=== PATIENT | female | born 1940 | race Caucasian/White ===

== ENCOUNTER → 2017-11-15 | Outpatient (CLI) | payer MEDICARE, BC ==
--- NOTE | 2017-11-15 16:22 | XR ---
Lumbar spine HISTORY: Trauma, low back pain 3 views of the lumbar spine Bone mineralization is reduced. Minimal anterolisthesis grade 1 L4-5. Bone mineralization is reduced. Multilevel spondylosis is present with associated loss of disc height at the intervertebral levels a nd vacuum phenomenon. Sclerosis present in the posterior elements. Mild dextroscoliosis centered at L 3. IMPRESSION: No acute fracture or subluxation. Degenerative disc disease and facet arthropathy, spinal curvature and osteopenia. Consider MRI as indicated.
== END ==
LOC: RADXRYALE 15:20
PROVIDERS: ATTEND Internal Medicine
DX: M51.36 Other intervertebral disc degeneration, lumbar region (principal); M46.96 Unspecified inflammatory spondylopathy, lumbar region; W10.8XXA Fall (on) (from) other stairs and steps, initial encounter
CPT/HCPCS: 72100

== ENCOUNTER 2018-07-16 18:29 | Inpatient (IN) | payer MEDICARE, BC ==
[2018-07-16] MEDS ORDERED: ACETAMINOPHEN TAB 500 MG TAB PO STA (19:01)
[2018-07-16] MEDS ORDERED: KETOROLAC 30 MG/ML 1 ML VIAL IVP STA (19:04)
--- NOTE | 2018-07-16 19:09 | ED ---
Extremity Problem HPI <Gianni Emery - Last Filed: 07/16/18 19:39> - General Source: patient Mode of arrival: wheelchair Limitations: no limitations <Angie Shaw - Last Filed: 07/16/18 21:06> - General Chief complaint: Extremity Problem,Nontraumatic Stated complaint: RT FOOT PAIN Time Seen by Provider: 07/16/18 18:49 - History of Present Illness Initial comments: 78-year-old female patient presents to the emergency department today for evaluation of right ankle pain, swelling, and redness. Patient states that this started this morning and has progressively worsened throughout the day. States that she has now unable to bear weight due to the pain. States that she has felt chilled. She denies any injury to the ankle. States that she did have a fall a few months ago causing an abrasion to the ankle but that seemed to heal well. She denies any nasal congestion, cough, sore throat, nausea, vomiting, abdominal pain, hematuria, dysuria, urinary frequency, urinary urgency. Patient denies any recent rash, shortness breath, chest pain, diarrhea , constipation, back pain, numbness, tingling, dizziness, weakness, headache, visual changes, or any other complaints. (Angie Shaw) - Related Data Home Medications Medication Instructions Recorded Confirmed ALPRAZolam [Xanax] 0.5 mg PO BID 07/16/18 07/16/18 Glimepiride [Amaryl] 1 mg PO BID 07/16/18 07/16/18 Lisinopril [Zestril] 10 mg PO DAILY 07/16/18 07/16/18 Sertraline HCl [Zoloft] 50 mg PO DAILY 07/16/18 07/16/18 fentaNYL 25MCG/HR PATCH [Duragesic 1 patch TRANSDERM Q72H 07/16/18 07/16/18 25MCG/HR] oxyCODONE HCL 10 mg PO Q6H PRN 07/16/18 07/16/18 Allergies Allergy/AdvReac Type Severity Reaction Status Date / Time Penicillins Allergy Swelling Verified 07/16/18 18:58 Review of Systems ROS Other: All systems not noted in ROS Statement are negative. <Gianni Emery - Last Filed: 07/16/18 19:39> ROS Other: All systems not noted in ROS Statement are negative. <Angie Shaw M - Last Filed: 07/16/18 21:06> ROS Statement: Those systems with pertinent positive or pertinent negative responses have been documented in the HPI. Past Medical History Past Medical History: Coronary Artery Disease (CAD), Diabetes Mellitus, Hyperlipidemia, Hypertension Additional Past Medical History / Comment(s): spinal stenosis History of Any Multi-Drug Resistant Organisms: None Reported Past Surgical History: Back Surgery, Hysterectomy, Orthopedic Surgery Additional Past Surgical History / Comment(s): bilateral knee replacements Past Psychological History: Depression Smoking Status: Former smoker Past Alcohol Use History: None Reported Past Drug Use History: None Reported <Angie Shaw Jairon - Last Filed: 07/16/18 21:06> General Exam Limitations: no limitations General appearance: alert, in no apparent distress, other (This is a well- developed, well-nourished elderly female patient in no acute distress. Vital signs upon presentation are temperature 101.6F oral, pulse 87, respirations 18 , blood pressure 122/67, pulse ox 96% on room air.) Eye exam: Present: normal appearance, PERRL, EOMI. Absent: scleral icterus, conjunctival injection, periorbital swelling ENT exam: Present: normal exam, normal oropharynx, mucous membranes moist Respiratory exam: Present: normal lung sounds bilaterally. Absent: respiratory distress, wheezes, rales, rhonchi, stridor Cardiovascular Exam: Present: regular rate, normal rhythm, normal heart sounds. Absent: systolic murmur, diastolic murmur, rubs, gallop, clicks GI/Abdominal exam: Present: soft, normal bowel sounds. Absent: distended, tenderness, guarding, rebound, rigid Extremities exam: Present: full ROM, normal capillary refill, other (Patient has erythema and swelling surrounding the right ankle. Pedal pulses 2+ and equal bilaterally. Patient has tenderness over the dorsal foot and toes as well. Skin is otherwise pink, warm, dry.). Absent: normal inspection, tenderness, pedal edema, joint swelling, calf tenderness Neurological exam: Present: alert, oriented X3, CN II-XII intact Psychiatric exam: Present: normal affect, normal mood Skin exam: Present: warm, dry, intact, normal color. Absent: rash <Angie Shaw Jairon - Last Filed: 07/16/18 21:06> Vital Signs 07/16/18 07/16/18 18:41 18:58 Temperature 99.6 F 101.6 F H Pulse Rate 87 Respiratory 18 Rate Blood Pressure 122/67 O2 Sat by Pulse 96 Oximetry Medical Decision Making <Gianni Emery - Last Filed: 07/16/18 19:39> - Lab Data Result diagrams: 07/16/18 19:25 07/16/18 19:25 - Radiology Data Radiology results: report reviewed, image reviewed <Angie Shaw - Last Filed: 07/16/18 21:06> - Medical Decision Making Patient reevaluated by myself, Dr. Emery. I did review and agree with PA findings. Case was discussed in detail with Dr. Souza, covering for Dr. Mena , will admit. IV antibiotics will be started. Consults will be placed for ID and orthopedics. (Gianni Emery) 78-year-old female patient presented to the emergency department today for evaluation of right ankle pain, redness, swelling. Physical examination did reveal edema surrounding the right ankle with overlying cellulitis. The patient did have some joint tenderness as well. She is febrile 101.6F. Labs reviewed and are relatively unremarkable. Lactic acid normal. White blood cell count is normal. X-ray of the right ankle is negative for any acute osseous abnormality or effusion but does show evidence of soft tissue swelling. Did discuss findings and results with the patient and family. There is obvious cellulitis but given amount of pain there is also concern for septic arthritis. We will admit for IV antibiotics and consultation with orthopedics and infectious disease. Patient is agreeable with this plan. (Angie Shaw) - Lab Data Lab Results 07/16/18 07/16/18 07/16/18 Range/Units 19:25 19:25 19:25 WBC 7.9 (3.8-10.6) k/uL RBC 3.45 L (3.80-5.40) m/uL Hgb 10.8 L (11.4-16.0) gm/dL Hct 32.6 L (34.0-46.0) % MCV 94.7 (80.0-100.0) fL MCH 31.2 (25.0-35.0) pg MCHC 33.0 (31.0-37.0) g/dL RDW 12.8 (11.5-15.5) % Plt Count 183 (150-450) k/uL Neutrophils % 72 % Lymphocytes % 19 % Monocytes % 6 % Eosinophils % 1 % Basophils % 0 % Neutrophils # 5.7 (1.3-7.7) k/uL Lymphocytes # 1.5 (1.0-4.8) k/uL Monocytes # 0.4 (0-1.0) k/uL Eosinophils # 0.1 (0-0.7) k/uL Basophils # 0.0 (0-0.2) k/uL Sodium 138 (137-145) mmol/L Potassium 4.6 (3.5-5.1) mmol/L Chloride 100 (98-107) mmol/L Carbon Dioxide 29 (22-30) mmol/L Anion Gap 9 mmol/L BUN 22 H (7-17) mg/dL Creatinine 1.27 H (0.52-1.04) mg/dL Est GFR (CKD-EPI)AfAm 47 (>60 ml/min/1.73 sqM) Est GFR (CKD-EPI)NonAf 40 (>60 ml/min/1.73 sqM) Glucose 144 H (74-99) mg/dL Plasma Lactic Acid [place] 1.0 (0.7-2.0) mmol/L Calcium 9.3 (8.4-10.2) mg/dL Total Bilirubin 0.8 (0.2-1.3) mg/dL AST 23 (14-36) U/L ALT 21 (9-52) U/L Alkaline Phosphatase 58 (38-126) U/L Total Protein 7.7 (6.3-8.2) g/dL Albumin 4.2 (3.5-5.0) g/dL Urine Color Urine Appearance (Clear) Urine pH (5.0-8.0) Ur Specific [place] (1.001-1.035) Urine Protein (Negative) Urine Glucose (UA) (Negative) Urine Ketones (Negative) Urine Blood (Negative) Urine Nitrite (Negative) Urine Bilirubin (Negative) Urine Urobilinogen (<2.0) mg/dL Ur Leukocyte Esterase (Negative) Urine WBC (0-5) /hpf Ur Squamous Epith Cells (0-4) /hpf Urine Bacteria (None) /hpf Urine Mucus (None) /hpf 07/16/18 Range/Units 20:20 WBC (3.8-10.6) k/uL RBC (3.80-5.40) m/uL Hgb (11.4-16.0) gm/dL Hct (34.0-46.0) % MCV (80.0-100.0) fL MCH (25.0-35.0) pg MCHC (31.0-37.0) g/dL RDW (11.5-15.5) % Plt Count (150-450) k/uL Neutrophils % % Lymphocytes % % Monocytes % % Eosinophils % % Basophils % % Neutrophils # (1.3-7.7) k/uL Lymphocytes # (1.0-4.8) k/uL Monocytes # (0-1.0) k/uL Eosinophils # (0-0.7) k/uL Basophils # (0-0.2) k/uL Sodium (137-145) mmol/L Potassium (3.5-5.1) mmol/L Chloride (98-107) mmol/L Carbon Dioxide (22-30) mmol/L Anion Gap mmol/L BUN (7-17) mg/dL Creatinine (0.52-1.04) mg/dL Est GFR (CKD-EPI)AfAm (>60 ml/min/1.73 sqM) Est GFR (CKD-EPI)NonAf (>60 ml/min/1.73 sqM) Glucose (74-99) mg/dL Plasma Lactic Acid [place] (0.7-2.0) mmol/L Calcium (8.4-10.2) mg/dL Total Bilirubin (0.2-1.3) mg/dL AST (14-36) U/L ALT (9-52) U/L Alkaline Phosphatase (38-126) U/L Total Protein (6.3-8.2) g/dL Albumin (3.5-5.0) g/dL Urine Color Yellow Urine Appearance Clear (Clear) Urine pH 6.0 (5.0-8.0) Ur Specific [place] 1.013 (1.001-1.035) Urine Protein Negative (Negative) Urine Glucose (UA) Negative (Negative) Urine Ketones Negative (Negative) Urine Blood Negative (Negative) Urine Nitrite Negative (Negative) Urine Bilirubin Negative (Negative) Urine Urobilinogen <2.0 (<2.0) mg/dL Ur Leukocyte Esterase Small H (Negative) Urine WBC 9 H (0-5) /hpf Ur Squamous Epith Cells 3 (0-4) /hpf Urine Bacteria Rare H (None) /hpf Urine Mucus Rare H (None) /hpf - Radiology Data 3 views of the right ankle are obtained. Report was reviewed in its entirety. Impression by Dr. Sparrow shows soft tissue swelling inferior to the medial ankle. Plantar calcaneal heel spur. (Angie Shaw) Disposition <Gianni Emery - Last Filed: 07/16/18 19:39> Decision to Admit Reason: Admit from EC Decision Date: 07/16/18 Decision Time: 21:00 <Angie Shaw - Last Filed: 07/16/18 21:06> Clinical Impression: Cellulitis of right ankle Disposition: ADMITTED IP TO THIS [facility] Condition: Serious Referrals: Julia Mena MD [Primary Care Provider] - 1-2 days
[2018-07-16] MEDS ORDERED: VANCOMYCIN IV PER PHARMACY 1 EACH MISC MISCELLANE PRN (19:21)
[2018-07-16 19:52] LABS: Basophils % (A) 0 %; Eosinophils # (A) 0.1 k/uL (0-0.7); Eosinophils % (A) 1 %; HCT 32.6 % (34.0-46.0); HGB 10.8 gm/dL (11.4-16.0); Lymphocytes # (A) 1.5 k/uL (1.0-4.8); Lymphocytes % (A) 19 %; MCH 31.2 pg (25.0-35.0); MCV 94.7 fL (80.0-100.0); Mean Platelet Volume 7.1; Monocytes # (A) 0.4 k/uL (0-1.0); Monocytes % (A) 6 %; Neutrophils # (A) 5.7 k/uL (1.3-7.7); Neutrophils % (A) 72 %; Platelet Count 183 k/uL (150-450); RBC 3.45 m/uL (3.80-5.40); RDW 12.8 % (11.5-15.5); WBC 7.9 k/uL (3.8-10.6)
[2018-07-16 20:01] LABS: Albumin 4.2 g/dL (3.5-5.0); Calcium 9.3 mg/dL (8.4-10.2); Potassium 4.6 mmol/L (3.5-5.1); Total Bilirubin 0.8 mg/dL (0.2-1.3); Total Protein 7.7 g/dL (6.3-8.2)
[2018-07-16] MEDS: SODIUM CHLORIDE 0.9% 500 ML 500 ML IV SCH ×2 (20:06→21:17)
--- NOTE | 2018-07-16 20:19 | XR ---
EXAMINATION TYPE: XR ankle complete RT DATE OF EXAM: 07/16/2018 COMPARISON: None HISTORY: Pain TECHNIQUE: Three-view right ankle FINDINGS: Plantar calcaneal heel spur is present. Vascular calcification is present. No displaced fra ctures are evident. There is some mild soft tissue swelling over the inferior medial malleolus IMPRESSION: 1. Soft tissue swelling inferior medial ankle 2. Plantar calcaneal heel spur
[2018-07-16] MEDS ORDERED: VANCOMYCIN 1,000 MG in SODIUM CHLORIDE 0.9% 250 ML IVPB STA (20:26)
[2018-07-16 20:44] LABS: Appearance,Urine Clear (Clear); Bacteria,Urine Rare /hpf; Bilirubin,Urine Negative (Negative); Blood,Urine Negative (Negative); Color,Urine Yellow; Glucose,Urine (UA) Negative (Negative); Ketones,Urine Negative (Negative); Leukocyte Esterase,Urine Small (Negative); Mucus,Urine Rare /hpf; Nitrite,Urine Negative (Negative); Protein,Urine Negative (Negative); Specific Gravity,Urine 1.013 (1.001-1.035); Squamous Epithelial Cell,Urine 3 /hpf (0-4); Urobilinogen,Urine <2.0 mg/dL (<2.0); WBC,Urine 9 /hpf (0-5)
[2018-07-16] MEDS ORDERED: ACETAMINOPHEN TAB 325 MG TAB PO PRN (21:01)
[2018-07-16] MEDS ORDERED: NALOXONE 0.4 MG/ML 1 ML VIAL IV PRN (21:01)
[2018-07-16] MEDS ORDERED: HYDROmorphone 0.5 MG/0.5 ML SYRINGE IVP PRN (21:01)
[2018-07-16] MEDS: SODIUM CHLORIDE 0.9% 1,000 ML IV SCH (21:18)
[2018-07-16 22:24] VITALS: BMI 24.1
[2018-07-17 06:05] LABS: Glucose,Whole Blood 111 mg/dL (75-99)
[2018-07-17] MEDS: SERTRALINE 50 MG TAB PO SCH (08:01)
[2018-07-17] MEDS: ALPRAZolam 0.5 MG TAB PO SCH ×3 (08:01→20:03)
[2018-07-17] MEDS: GLIMEPIRIDE 1 MG TAB PO SCH ×2 (08:02→17:42)
[2018-07-17] MEDS ORDERED: LISINOPRIL 10 MG TAB PO SCH (09:00)
[2018-07-17 09:29] LABS: Basophils % (A) 0 %; Eosinophils # (A) 0.1 k/uL (0-0.7); Eosinophils % (A) 2 %; HCT 30.2 % (34.0-46.0); HGB 9.9 gm/dL (11.4-16.0); Lymphocytes # (A) 0.7 k/uL (1.0-4.8); Lymphocytes % (A) 14 %; MCH 31.6 pg (25.0-35.0); MCHC 32.9 g/dL (31.0-37.0); MCV 96.2 fL (80.0-100.0); Mean Platelet Volume 7.5; Monocytes # (A) 0.3 k/uL (0-1.0); Monocytes % (A) 6 %; Neutrophils # (A) 4.2 k/uL (1.3-7.7); Neutrophils % (A) 78 %; Platelet Count 145 k/uL (150-450); RBC 3.14 m/uL (3.80-5.40); RDW 12.8 % (11.5-15.5); WBC 5.4 k/uL (3.8-10.6)
[2018-07-17 12:13] LABS: Glucose,Whole Blood 129 mg/dL (75-99)
[2018-07-17] MEDS ORDERED: VANCOMYCIN 1,000 MG in SODIUM CHLORIDE 0.9% 250 ML IVPB ONE (12:30)
--- NOTE | 2018-07-17 13:30 | P.CNOR ---
History of Present Illness - [facility] Consult date: 07/17/18 Consult reason: other (Cellulitis right ankle/foot.) History of present illness: This is a 78-year-old female who is admitted to the emergency department on 03/2019 with redness and swelling to the right foot and ankle. She has no known recent injury. She states that she did have a large abrasion to the ankle several months ago which healed fine. She states that at home she began noticing significant swelling and redness as well as pain to the foot and ankle. She was having difficulty bearing weight secondary to the pain. She is admitted to the hospital for IV antibiotics. We're consulted for thecal evaluation. Since her admission her symptoms have improved by about 80% according to the patient. Past Medical History Past Medical History: Coronary Artery Disease (CAD), Diabetes Mellitus, Hyperlipidemia, Hypertension Additional Past Medical History / Comment(s): spinal stenosis History of Any Multi-Drug Resistant Organisms: None Reported Past Surgical History: Back Surgery, Hysterectomy, Orthopedic Surgery Additional Past Surgical History / Comment(s): bilateral knee replacements Past Psychological History: Depression Smoking Status: Never smoker Past Alcohol Use History: None Reported Past Drug Use History: None Reported Medications and Allergies Home Medications Medication Instructions Recorded Confirmed Type ALPRAZolam [Xanax] 0.5 mg PO BID 07/16/18 07/16/18 History Glimepiride [Amaryl] 1 mg PO BID 07/16/18 07/16/18 History Lisinopril [Zestril] 10 mg PO DAILY 07/16/18 07/16/18 History Sertraline HCl [Zoloft] 50 mg PO DAILY 07/16/18 07/16/18 History fentaNYL 25MCG/HR PATCH [Duragesic 1 patch TRANSDERM Q72H 07/16/18 07/16/18 History 25MCG/HR] oxyCODONE HCL 10 mg PO Q6H PRN 07/16/18 07/16/18 History Allergies Allergy/AdvReac Type Severity Reaction Status Date / Time Penicillins Allergy Swelling Verified 07/16/18 18:58 Physical Examination This is a pleasant 78-year-old female in no acute distress. She is alert and oriented 3. Exam of the right lower extremity reveals minimal erythema. There is minimal soft tissue swelling about the ankle. She is able to fully dorsiflex and plantarflex at the ankle without difficulty or pain. She has normal toe motion. Neurovascular status to the right lower extremity is intact. Results X-rays of the right ankle reveal no bony abnormality. No acute fracture identified. - Labs Labs: Abnormal Lab Results - Last 24 Hours (Table) 07/16/18 07/16/18 07/16/18 Range/Units 19:25 19:25 20:20 RBC 3.45 L (3.80-5.40) m/uL Hgb 10.8 L (11.4-16.0) gm/dL Hct 32.6 L (34.0-46.0) % Plt Count (150-450) k/uL Lymphocytes # (1.0-4.8) k/uL BUN 22 H (7-17) mg/dL Creatinine 1.27 H (0.52-1.04) mg/dL Glucose 144 H (74-99) mg/dL POC Glucose (mg/dL) (75-99) mg/dL Ur Leukocyte Esterase Small H (Negative) Urine WBC 9 H (0-5) /hpf Urine Bacteria Rare H (None) /hpf Urine Mucus Rare H (None) /hpf 07/17/18 07/17/18 07/17/18 Range/Units 06:01 08:31 12:08 RBC 3.14 L (3.80-5.40) m/uL Hgb 9.9 L (11.4-16.0) gm/dL Hct 30.2 L (34.0-46.0) % Plt Count 145 L (150-450) k/uL Lymphocytes # 0.7 L (1.0-4.8) k/uL BUN (7-17) mg/dL Creatinine (0.52-1.04) mg/dL Glucose (74-99) mg/dL POC Glucose (mg/dL) 111 H 129 H (75-99) mg/dL Ur Leukocyte Esterase (Negative) Urine WBC (0-5) /hpf Urine Bacteria (None) /hpf Urine Mucus (None) /hpf Microbiology - Last 24 Hours (Table) 07/16/18 20:20 Urine Culture - Preliminary Urine,Voided H & H 07/16/18 07/17/18 Range/Units 19:25 08:31 Hgb 10.8 L 9.9 L (11.4-16.0) gm/dL Hct 32.6 L 30.2 L (34.0-46.0) % Result Diagrams: 07/17/18 08:31 07/16/18 19:25 Assessment and Plan (1) Cellulitis of right ankle Current Visit: Yes Status: Acute Code(s): L03.115 - CELLULITIS OF RIGHT LOWER LIMB SNOMED Code(s): 56562101 Plan: The clinical and x-ray findings are discussed with the patient. The patient is evaluated by Dr. Hair as well. Since she has improved significantly since her admission, I recommend continued IV antibiotics per medicine. There is no surgical indication at this time. We will follow peripherally.
--- NOTE | 2018-07-17 14:45 | P.HPIM ---
History of Present Illness 69-year-old pleasant female came in with complaints of swelling and redness of the right ankle and foot area when I valid the patient is no redness patient does have increased swelling in the there is no limitation in active or passive movements of the right ankle patient appears to have severe osteo-arthritis of that ankle with a calcaneal spur patient denied any fever chills. Patient apparently had a large aberration in the ankle several the months ago which is healing fine now with the because of that the history of redness infectious disease is recommending ceftezolin and monitor her overnight and IV antibiotics and hospital discharge tomorrow on Keflex there is no evidence of septic arthritis but cellulitis cannot be completely ruled out as her the redness may have improved by now with IV antibiotics since last night. Review of Systems REVIEW OF SYSTEMS: CONSTITUTIONAL: No fever, no malaise, no fatigue. HEENT: No recent visual problems or hearing problems. Denied any sore throat. CARDIOVASCULAR: No chest pain, orthopnea, PND, no palpitations, no syncope. PULMONARY: No shortness of breath, no cough, no hemoptysis. GASTROINTESTINAL: No diarrhea, no nausea, no vomiting, no abdominal pain. NEUROLOGICAL: No headaches, no weakness, no numbness. HEMATOLOGICAL: Denies any bleeding or petechiae. GENITOURINARY: Denies any burning micturition, frequency, or urgency. MUSCULOSKELETAL/RHEUMATOLOGICAL: As mentioned in HPI ENDOCRINE: Denies any polyuria or polydipsia. The rest of the 14-point review of systems is negative. Past Medical History Past Medical History: Coronary Artery Disease (CAD), Diabetes Mellitus, Hyperlipidemia, Hypertension Additional Past Medical History / Comment(s): spinal stenosis History of Any Multi-Drug Resistant Organisms: None Reported Past Surgical History: Back Surgery, Hysterectomy, Orthopedic Surgery Additional Past Surgical History / Comment(s): bilateral knee replacements Past Psychological History: Depression Smoking Status: Never smoker Past Alcohol Use History: None Reported Past Drug Use History: None Reported Medications and Allergies Home Medications Medication Instructions Recorded Confirmed Type ALPRAZolam [Xanax] 0.5 mg PO BID 07/16/18 07/16/18 History Glimepiride [Amaryl] 1 mg PO BID 07/16/18 07/16/18 History Lisinopril [Zestril] 10 mg PO DAILY 07/16/18 07/16/18 History Sertraline HCl [Zoloft] 50 mg PO DAILY 07/16/18 07/16/18 History fentaNYL 25MCG/HR PATCH [Duragesic 1 patch TRANSDERM Q72H 07/16/18 07/16/18 History 25MCG/HR] oxyCODONE HCL 10 mg PO Q6H PRN 07/16/18 07/16/18 History Allergies Allergy/AdvReac Type Severity Reaction Status Date / Time Penicillins Allergy Swelling Verified 07/16/18 18:58 Physical Exam Vitals: Vital Signs Temp Pulse Pulse Resp BP BP Pulse Ox 07/17/18 07:20 98.0 F 71 16 125/61 94 L 07/16/18 23:00 98.8 F 68 17 129/63 97 07/16/18 21:54 98.8 F 78 16 105/58 98 07/16/18 18:58 101.6 F H 07/16/18 18:41 99.6 F 87 18 122/67 96 Intake and Output 07/16/18 07/17/18 07/17/18 22:59 06:59 14:59 Other: # Voids 2 Weight 59.874 kg PHYSICAL EXAMINATION: GENERAL: The patient is alert and oriented x3, not in any acute distress. Well developed, well nourished. HEENT: Pupils are round and equally reacting to light. EOMI. No scleral icterus. No conjunctival pallor. Normocephalic, atraumatic. No pharyngeal erythema. No thyromegaly. CARDIOVASCULAR: S1 and S2 present. No murmurs, rubs, or gallops. PULMONARY: Chest is clear to auscultation, no wheezing or crackles. ABDOMEN: Soft, nontender, nondistended, normoactive bowel sounds. No palpable organomegaly. MUSCULOSKELETAL: Right ankle is swollen with mild restriction of active movements of the right ankle no significant redness or local is of temperature EXTREMITIES: No cyanosis, clubbing, or pedal edema. NEUROLOGICAL: Gross neurological examination did not reveal any focal deficits. SKIN: No rashes. Results CBC & Chem 7: 07/17/18 08:31 07/16/18 19:25 Labs: Abnormal Lab Results - Last 24 Hours (Table) 07/16/18 07/16/18 07/16/18 Range/Units 19:25 19:25 20:20 RBC 3.45 L (3.80-5.40) m/uL Hgb 10.8 L (11.4-16.0) gm/dL Hct 32.6 L (34.0-46.0) % Plt Count (150-450) k/uL Lymphocytes # (1.0-4.8) k/uL BUN 22 H (7-17) mg/dL Creatinine 1.27 H (0.52-1.04) mg/dL Glucose 144 H (74-99) mg/dL POC Glucose (mg/dL) (75-99) mg/dL Ur Leukocyte Esterase Small H (Negative) Urine WBC 9 H (0-5) /hpf Urine Bacteria Rare H (None) /hpf Urine Mucus Rare H (None) /hpf 07/17/18 07/17/18 07/17/18 Range/Units 06:01 08:31 12:08 RBC 3.14 L (3.80-5.40) m/uL Hgb 9.9 L (11.4-16.0) gm/dL Hct 30.2 L (34.0-46.0) % Plt Count 145 L (150-450) k/uL Lymphocytes # 0.7 L (1.0-4.8) k/uL BUN (7-17) mg/dL Creatinine (0.52-1.04) mg/dL Glucose (74-99) mg/dL POC Glucose (mg/dL) 111 H 129 H (75-99) mg/dL Ur Leukocyte Esterase (Negative) Urine WBC (0-5) /hpf Urine Bacteria (None) /hpf Urine Mucus (None) /hpf Microbiology - Last 24 Hours (Table) 07/16/18 20:20 Urine Culture - Preliminary Urine,Voided Thrombosis Risk Factor Assmnt - Choose All That Apply Any of the Below Risk Factors Present?: No Other Risk Factors: No Thrombosis Risk Factor Assessment Level: Very Low Risk Assessment and Plan Plan: -Possible cellulitis of the right ankle area: Antibiotic management as mentioned above -Severe osteoarthritis of the right ankle leading to swelling of the right ankle : Patient unfortunately cannot take nonsteroidal anti-inflammatories because of her poor kidney function with creatinine of 1.25 baseline is around 0.8. Patient is on fentanyl and oxycodone which is probably not appropriate for his age but patient is tolerating this very well without any side effects because of which these will be continued along with Tylenol. 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
[2018-07-17] MEDS: ceFAZolin IN SWFI 2 GM/20 ML SYRINGE IVP SCH (14:51)
[2018-07-17] MEDS ORDERED: ceFAZolin 2,000 MG in DEXTROSE/WATER 1 50ML.BAG IVPB SCH (16:00)
[2018-07-17 17:21] LABS: Glucose,Whole Blood 99 mg/dL (75-99)
[2018-07-17] MEDS: SODIUM CHLORIDE 0.9% 1,000 ML IV SCH (17:43)
[2018-07-17 20:09] LABS: Glucose,Whole Blood 120 mg/dL (75-99)
[2018-07-18] MEDS: ceFAZolin IN SWFI 2 GM/20 ML SYRINGE IVP SCH ×2 (00:22→09:00)
[2018-07-18] MEDS: SODIUM CHLORIDE 0.9% 1,000 ML IV SCH (00:23)
[2018-07-18 07:34] LABS: Glucose,Whole Blood 96 mg/dL (75-99)
--- NOTE | 2018-07-18 07:36 | CONS ---
CONSULTATION DATE OF SERVICE: 07/17/2018 REASON FOR CONSULTATION: Right ankle cellulitis. HISTORY OF PRESENT ILLNESS: The patient is a 78-year-old female presenting to the ER at [facility] with chief complaints of right ankle pain and swelling. This symptom has been going on for a few days before she presented to hospital. Patient did give a history of some skin peeling off before she noticed to have swelling and redness of the right ankle and foot area. The patient did have a dull aching pain times throbbing, pain was worse with walking. She was unable to bear any weight on it with the depth around 7 to 8/10 and no radiation. The patient has high-grade fever with these symptoms, the patient was evaluated by the ER physician. On arrival to the ER, the patient did have x-rays of the ankle, which showed soft tissue swelling inferior medial ankle, but no evidence of any bony changes. Patient did have a fever of 101.6 degrees Fahrenheit. Her white count was not elevated. Patient has been diagnosed with acute cellulitis. Patient was started on vancomycin because of her PENICILLIN ALLERGY. She was admitted to the hospital. Infectious Disease was consulted for further recommendation regarding antibiotic therapy. REVIEW OF SYSTEMS: Positive points have been mentioned in HPI. Rest of the system has been negative. PAST MEDICAL HISTORY: Diabetes mellitus, hypertension, hyperlipidemia, coronary artery disease, spinal stenosis. PAST SURGICAL HISTORY: Back surgery, hysterectomy and bilateral knee replacement. SOCIAL HISTORY: No history of smoking, drinking, or any drug use. FAMILY HISTORY: No pertinent findings noticed. ALLERGIES: PENICILLIN with a rash. No history of anaphylaxis. MEDICATION: Patient currently on Tylenol, Xanax, Duragesic patch, Amaryl, Dilaudid, Narcan, oxycodone, Zoloft, lisinopril. PHYSICAL EXAMINATION: Blood pressure is 125/61 with a pulse of 71, temperature 98, T-max is 101. She is 94% on room air. General description is an elderly female up in the bed in no distress. No tachypnea or accessory muscle for respiration use. HEENT EXAMINATION: Slight pallor. No scleral icterus. Oral mucosa is dry. LUNGS: Unlabored breathing with decreased breath sounds in the bases, no wheeze. HEART: S1, S2. Regular rate and rhythm. ABDOMEN: Soft, no tenderness. Right medial ankle with slight erythema, slightly warm to touch and tender. No fluctuation, induration or drainage. NEUROLOGICAL: The patient is awake, alert, oriented, mood and affect normal. LABS: Hemoglobin 9.9, white count 5.4, BUN of 22, creatinine 1.27. Electrolytes have been normal. Liver enzymes are normal. Urine was negative. X-ray report as mentioned above. DIAGNOSTIC IMPRESSION/PLAN: 1. Patient admitted to the hospital with a fever, pain to the right ankle and foot area in this patient who gives a history of of the skin in that area with concern for underlying cellulitis, not entirely excluded. Clinically doubt underlying septic arthritis or any abscess. 2. Patient who does have a PENICILLIN ALLERGY, limited to the number of antibiotics that could be safely used. 3. Patient with baseline borderline kidney function and high risk of nephrotoxicity. PLAN: 1. Discontinue the vancomycin. 2. Will start the patient on cefazolin 2 g q.8 hours. 3. If the patient continues to show improvement on IV cefazolin, plan to finish therapy with oral Keflex. Continue supportive care. MMODL / IJN: [id number] /
[2018-07-18 07:57] VITALS: BP 121/64; PULSE 57; RESP 16; TEMP 98.5
[2018-07-18] MEDS: SERTRALINE 50 MG TAB PO SCH (08:59)
[2018-07-18] MEDS: GLIMEPIRIDE 1 MG TAB PO SCH (09:00)
[2018-07-18] MEDS: ALPRAZolam 0.5 MG TAB PO SCH (09:02)
--- NOTE | 2018-07-18 14:39 | PN ---
PROGRESS NOTE DATE OF SERVICE: 07/18/2018 REASON FOR FOLLOWUP: Right medial ankle and foot cellulitis. INTERVAL HISTORY: The patient was seen earlier this afternoon. The patient has been afebrile. She is feeling better. Breathing comfortably. The patient denies having any pain to the right medial foot area. The swelling has improved. No open wound or any drainage. PHYSICAL EXAMINATION: Blood pressure is 121/64, pulse of 57, temperature 98.5. She is 98% on room air. General description is an elderly female, up in the bed in no distress. RESPIRATORY SYSTEM: Unlabored breathing, clear to auscultation anteriorly. HEART: S1, S2. Regular rate and rhythm. ABDOMEN: Soft, no tenderness. Right foot: swelling has improved. No wound drainage. LABS: Reveal a white count of 5.4, blood culture negative. DIAGNOSTIC IMPRESSION AND PLAN: Patient with acute right foot cellulitis. Patient seemed to respond to the Levaquin. She will be switched over to Keflex 500 mg 3 times a day for about a week. Prescription sent to the pharmacy. The patient was to follow up in the office in 1 week if any problems. Continue supportive care. All questions were answered. MMODL / IJN: [id number] /
== END 2018-07-18 13:56 | disposition home or self-care (01) | DRG 603 ==
LOC: EC 18:29 → 4MS4W 21:01
PROVIDERS: ADMIT Internal Medicine; ATTEND Internal Medicine
DX: L03.115 Cellulitis of right lower limb (principal); N17.9 Acute kidney failure, unspecified; E11.22 Type 2 diabetes mellitus with diabetic chronic kidney disease; M19.071 Primary osteoarthritis, right ankle and foot; I12.9 Hypertensive chronic kidney disease with stage 1 through stage 4 chronic kidney disease, or unspecified chronic kidney disease; N18.2 Chronic kidney disease, stage 2 (mild); E78.5 Hyperlipidemia, unspecified; F32.9 Major depressive disorder, single episode, unspecified; I25.10 Atherosclerotic heart disease of native coronary artery without angina pectoris; M48.00 Spinal stenosis, site unspecified; Z90.710 Acquired absence of both cervix and uterus; Z96.653 Presence of artificial knee joint, bilateral; Z79.84 Long term (current) use of oral hypoglycemic drugs; Z79.899 Other long term (current) drug therapy; Z87.891 Personal history of nicotine dependence; Z91.81 History of falling; Z88.0 Allergy status to penicillin
CPT/HCPCS: 36415; 80053; 81001; 83605; 85025; 87040; 87086; 96365; 96366; 96368; 96375; 99284

== ENCOUNTER → 2019-03-28 | Outpatient (CLI) | payer MEDICARE, BC ==
[2019-03-28 18:53] LABS: African American GFR (CKD) 54.9 (60.0-200.0); Albumin 4.6 g/dL (3.80-4.90); Albumin/Globulin Ratio 1.53 (1.60-3.17); Anion Gap 8.4 mmol/L (4.00-12.00); Calcium 9.9 mg/dL (8.7-10.3); Carbon Dioxide 26.6 mmol/L (21.6-31.8); Potassium 4.4 mmol/L (3.5-5.5); Total Bilirubin 0.5 mg/dL (0.3-1.2); Total Protein 7.6 g/dL (6.2-8.2)
== END | disposition home or self-care (01) ==
LOC: LABWHC1 14:26
PROVIDERS: ATTEND Internal Medicine Endocrinology, Diabetes & Metabolism
DX: E11.9 Type 2 diabetes mellitus without complications (principal); I10 Essential (primary) hypertension; E78.2 Mixed hyperlipidemia
CPT/HCPCS: 36415; 80053; 82043; 82570; 82607; 84439; 84443; 87086

== ENCOUNTER 2024-09-09 16:50 | Observation (INO) | payer MEDICARE ==
--- NOTE | 2024-09-09 17:01 | ED ---
GI Bleed HPI - General Chief complaint: GI Bleed Stated complaint: rectal bleeding Time Seen by Provider: 09/09/24 16:58 Source: patient, family, RN notes reviewed, old records reviewed Mode of arrival: wheelchair Limitations: no limitations - History of Present Illness Initial comments: This is a 84 female to ER for evaluation. Patient presents today for diminished bowel movements and now blood in the stool. Doing stool softeners at home with diarrhea and having severe rectal pain tonight. Did notice blood in the rectum and right in the stool blood in the toilet MD complaint: blood on toilet paper, blood streaked stool, gross hematochezia Severity scale (1-10): 7 Quality: cramping, constant Consistency: constant Improves with: none Context: history of GI bleed Associated Symptoms: denies other symptoms Treatments Prior to Arrival: none - Related Data Home Medications Medication Instructions Recorded Confirmed Dapagliflozin Propanediol [Farxiga] 5 mg PO DAILY 09/09/24 09/09/24 Escitalopram [Lexapro] 5 mg PO HS 09/09/24 09/09/24 Previous Rx's Medication Instructions Recorded ALPRAZolam [Xanax] 0.5 mg PO HS #4 tab 09/13/24 Acetaminophen Tab [Tylenol] 650 mg PO Q6HR PRN tab 09/13/24 Aspirin 81 mg PO DAILY tab 09/13/24 Docusate [Colace] 100 mg PO BID cap 09/13/24 INSULIN LISPRO (HumaLOG) [HumaLOG] 0 unit SQ ACHS each 09/13/24 Lactulose [Cephulac] 20 gm PO BID PRN ml 09/13/24 Losartan [Cozaar] 50 mg PO DAILY tab 09/13/24 Pantoprazole Sodium [Protonix] 40 mg PO DAILY #30 tab 09/13/24 Tamsulosin [Flomax] 0.4 mg PO PC-BRKFST cap 09/13/24 oxyCODONE HCL [OxyIR] 10 mg PO Q8H PRN #4 tab 09/13/24 polyethylene glycoL 3350 [Miralax] 17 gm PO DAILY packet 09/13/24 Allergies Allergy/AdvReac Type Severity Reaction Status Date / Time Penicillins Allergy Swelling Verified 09/09/24 19:39 Review of Systems ROS Statement: Those systems with pertinent positive or pertinent negative responses have been documented in the HPI. ROS Other: All systems not noted in ROS Statement are negative. Past Medical History Past Medical History: Coronary Artery Disease (CAD), Diabetes Mellitus, Hyperlipidemia, Hypertension Additional Past Medical History / Comment(s): spinal stenosis History of Any Multi-Drug Resistant Organisms: None Reported Past Surgical History: Back Surgery, Hysterectomy, Orthopedic Surgery Additional Past Surgical History / Comment(s): bilateral knee replacements Past Psychological History: Depression Smoking Status: Never smoker Past Alcohol Use History: None Reported Past Drug Use History: None Reported General Exam Limitations: no limitations General appearance: alert, in no apparent distress Head exam: Present: atraumatic, normocephalic, normal inspection Eye exam: Present: normal appearance, PERRL, EOMI. Absent: scleral icterus, conjunctival injection, periorbital swelling ENT exam: Present: normal exam, mucous membranes moist Neck exam: Present: normal inspection. Absent: tenderness, meningismus, lymphadenopathy Respiratory exam: Present: normal lung sounds bilaterally. Absent: respiratory distress, wheezes, rales, rhonchi, stridor Cardiovascular Exam: Present: regular rate, normal rhythm, normal heart sounds. Absent: systolic murmur, diastolic murmur, rubs, gallop, clicks GI/Abdominal exam: Present: soft, normal bowel sounds. Absent: distended, tenderness, guarding, rebound, rigid Extremities exam: Present: normal inspection, full ROM, normal capillary refill. Absent: tenderness, pedal edema, joint swelling, calf tenderness Back exam: Present: normal inspection Neurological exam: Present: alert, oriented X3, CN II-XII intact Psychiatric exam: Present: normal affect, normal mood Skin exam: Present: warm, dry, intact, normal color. Absent: rash Course Vital Signs 09/09/24 09/09/24 09/09/24 16:52 17:24 22:05 Temperature 97.9 F Pulse Rate 90 73 71 Respiratory 20 16 20 Rate Blood Pressure 167/85 155/74 148/86 O2 Sat by Pulse 99 97 100 Oximetry - Reevaluation(s) Reevaluation #1: 09/09/24 19:04 Medical records reviewed Reevaluation #2: 09/09/24 22:11 Patient has minimal improvement after initial initial enema here in the ER Reevaluation #3: 09/09/24 22:11 Patient informed of results questions answered Reevaluation #4: Was pt. sent in by a medical professional or institution (, [facility], [employer], urgent care, hospital, or penitentiary...) When possible be specific @ -no Did you speak to anyone other than the patient for history (EMS, parent, family, police, friend...)? What history was obtained from this source @ -no Did you review nursing and triage notes (agree or disagree)? Why? @ -agree Are old charts reviewed (outside hosp., previous admission, EMS record, old EKG, old radiological studies, urgent care reports/EKG's, penitentiary records)? Report findings @ -yes Differential Diagnosis (chest pain, altered mental status, abdominal pain women, abdominal pain men, vaginal bleeding, weakness, fever, dyspnea, syncope, headache, dizziness, GI bleed, back pain, seizure, CVA, palpatations, mental health, musculoskeletal)? @ -prior EKG interpreted by me (3pts min.). @ -yes X-rays interpreted by me (1pt min.). @ -no CT interpreted by me (1pt min.). @ -Yes positive for rectal fecal impaction U/S interpreted by me (1pt. min.). @ -no What testing was considered but not performed or refused? (CT, X-rays, U/S, labs)? Why? @ -none What meds were considered but not given or refused? Why? @ -none Did you discuss the management of the patient with other professionals (professionals i.e. [facility]rell, [employer], lab, RT, psych nurse, drug abuse social worker, summer law clerk, teacher, search and rescue officer, lead case manager)? Give summary @ -no Was smoking cessation discussed for >3mins.? @ -no Was critical care preformed (if so, how long)? @ -no Were there social determinants of health that impacted care today? How? (Homelessness, low income, unemployed, alcoholism, drug addiction, transportat ion, low edu. Level, literacy, decrease access to med. care, snf, rehab)? @ -none Was there de-escalation of care discussed even if they declined (Discuss DNR or withdrawal of care, Hospice)? DNR status @ -no What co-morbidities impacted this encounter? (DM, HTN, Smoking, COPD, CAD, Cancer, CVA, ARF, Chemo, Hep., AIDS, mental health diagnosis, sleep apnea, morbid obesity)? @ -none Was patient admitted / discharged? Hospital course, mention meds given and route, prescriptions, significant lab abnormalities, going to OR and other pertinent info. @ - 84 female to ER for evaluation of what she believes is GI bleeding was having rectal pain does have significant amount of constipation possible rectal impaction, patient given multiple enemas here in the ER with some improvement not significant relief. Patient will admit for further bowel regiment Admitted Undiagnosed new problem with uncertain prognosis? @ -no Drug Therapy requiring intensive monitoring for toxicity (Heparin, Nitro, I nsulin, Cardizem)? @ -no Were any procedures done? @ -no Diagnosis/symptom? @ -Constipation Acute, or Chronic, or Acute on Chronic? @ -Acute Uncomplicated (without systemic symptoms) or Complicated (systemic symptoms)? @ -Complicated Side effects of treatment? @ -no Exacerbation, Progression, or Severe Exacerbation? @ -exacerbation Poses a threat to life or bodily function? How? (Chest pain, USA, SC, pneumonia, PE, COPD, DKA, ARF, appy, cholecystitis, CVA, Diverticulitis, Homicidal, Suici miladys, threat to staff... and all critical care pts) @ -yes extremes of age 0409/16/24 23:24 Reevaluation #5: Differential Abdominal Pain Women: Appendicitis, Cholecystitis, diverticulosis, ischemic bowel, pancreatitis, hepatitis, UTI, gastroenteritis, AAA, incarcerated hernia, bowel obstruction, constipation, inflammatory bowel, hepatitis, peptic ulcer disease, splenic in farction, perforated viscus, vulvitis, ovarian torsion, PID, kidney stone, placenta abruption, this is not meant to be an all-inclusive list Differential GI Bleed: Esophageal varices, aortoenteric fistula, Sadia-Seaz, gastritis, peptic ulcer disease, diverticulosis, inflammatory bowel disease, hemorrhoids, fissure, colitis, malignancy, Meckel's diverticulum, this is not meant to be an all-inclu sive list. - Consultations Consultation #1: Spoke with [facility] who agrees to admit this patient Medical Decision Making - Medical Decision Making 84 female to ER for evaluation of what she believes is GI bleeding was having rectal pain does have significant amount of constipation possible rectal impaction, patient given multiple enemas here in the ER with some improvement not significant relief. Patient will admit for further bowel regiment - Lab Data Result diagrams: 09/12/24 04:16 09/12/24 04:16 Lab Results 09/09/24 09/09/24 09/09/24 Range/Units 17:21 17:21 17:21 WBC 6.9 (3.8-10.6) k/uL RBC 3.73 L (3.80-5.40) m/uL Hgb 12.2 (11.4-16.0) gm/dL Hct 38.0 (34.0-46.0) % MCV 101.8 H (80.0-100.0) fL MCH 32.7 (25.0-35.0) pg MCHC 32.2 (31.0-37.0) g/dL RDW 13.8 (11.5-15.5) % Plt Count 212 (150-450) k/uL MPV 8.1 Neutrophils % 76 % Lymphocytes % 17 % Monocytes % 3 % Eosinophils % 1 % Basophils % 1 % Neutrophils # 5.3 (1.3-7.7) k/uL Lymphocytes # 1.2 (1.0-4.8) k/uL Monocytes # 0.2 (0-1.0) k/uL Eosinophils # 0.1 (0-0.7) k/uL Basophils # 0.1 (0-0.2) k/uL Macrocytosis Slight PT 11.4 (10.0-12.5) sec INR 1.0 (<1.2) APTT 22.3 (22.0-30.0) sec Sodium 142 (137-145) mmol/L Potassium 3.6 (3.5-5.1) mmol/L Chloride 102 (98-107) mmol/L Carbon Dioxide 29 (22-30) mmol/L Anion Gap 11 mmol/L BUN 26 H (7-17) mg/dL Creatinine 0.83 (0.52-1.04) mg/dL Est GFR (CKD-EPI)AfAm 75 (>60 ml/min/1.73 sqM) Est GFR (CKD-EPI)NonAf 65 (>60 ml/min/1.73 sqM) Glucose 106 H (74-99) mg/dL Plasma Lactic Acid Tiago (0.7-2.0) mmol/L Calcium 9.8 (8.4-10.2) mg/dL Magnesium 1.9 (1.6-2.3) mg/dL Total Bilirubin 0.5 (0.2-1.3) mg/dL AST 27 (14-36) U/L ALT 14 (4-34) U/L Alkaline Phosphatase 72 (38-126) U/L Troponin I (0.000-0.034) ng/mL Total Protein 7.9 (6.3-8.2) g/dL Albumin 4.5 (3.5-5.0) g/dL Lipase 45 (23-300) U/L Blood Type Blood Type Recheck Bld Type Recheck Status Antibody Screen Spec Expiration Date 09/09/24 09/09/24 09/09/24 Range/Units 17:21 17:21 17:21 WBC (3.8-10.6) k/uL RBC (3.80-5.40) m/uL Hgb (11.4-16.0) gm/dL Hct (34.0-46.0) % MCV (80.0-100.0) fL MCH (25.0-35.0) pg MCHC (31.0-37.0) g/dL RDW (11.5-15.5) % Plt Count (150-450) k/uL MPV Neutrophils % % Lymphocytes % % Monocytes % % Eosinophils % % Basophils % % Neutrophils # (1.3-7.7) k/uL Lymphocytes # (1.0-4.8) k/uL Monocytes # (0-1.0) k/uL Eosinophils # (0-0.7) k/uL Basophils # (0-0.2) k/uL Macrocytosis PT (10.0-12.5) sec INR (<1.2) APTT (22.0-30.0) sec Sodium (137-145) mmol/L Potassium (3.5-5.1) mmol/L Chloride (98-107) mmol/L Carbon Dioxide (22-30) mmol/L Anion Gap mmol/L BUN (7-17) mg/dL Creatinine (0.52-1.04) mg/dL Est GFR (CKD-EPI)AfAm (>60 ml/min/1.73 sqM) Est GFR (CKD-EPI)NonAf (>60 ml/min/1.73 sqM) Glucose (74-99) mg/dL Plasma Lactic Acid Tiago 1.5 (0.7-2.0) mmol/L Calcium (8.4-10.2) mg/dL Magnesium (1.6-2.3) mg/dL Total Bilirubin (0.2-1.3) mg/dL AST (14-36) U/L ALT (4-34) U/L Alkaline Phosphatase (38-126) U/L Troponin I 0.047 H* (0.000-0.034) ng/mL Total Protein (6.3-8.2) g/dL Albumin (3.5-5.0) g/dL Lipase (23-300) U/L Blood Type O Positive Blood Type Recheck No Previous Record Bld Type Recheck Status CABO Indicated Antibody Screen NEGATIVE Spec Expiration Date 09/12/2024 8359 - EKG Data -: EKG Interpreted by Me (EKG rate 82 QRS 106 QTc 480) - Radiology Data Radiology results: report reviewed (CT abdomen pelvis positive for constipation rectal impaction), image reviewed Disposition Clinical Impression: Anal fissure, Constipation Disposition: ADMITTED IP TO THIS [facility] Condition: Fair Is patient prescribed a controlled substance at d/c from ED?: No Time of Disposition: 22:00
[2024-09-09] MEDS: SODIUM CHLORIDE 0.9% 500 ML 500 ML IV STA (17:23)
[2024-09-09] MEDS: PANTOPRAZOLE 40 MG/10 ML VIAL IVP STA (17:24)
[2024-09-09] MEDS: ONDANSETRON 4 MG/2 ML VIAL IVP STA (17:27)
[2024-09-09 17:35] LABS: Basophils # (A) 0.1 k/uL (0-0.2); Basophils % (A) 1 %; Eosinophils # (A) 0.1 k/uL (0-0.7); Eosinophils % (A) 1 %; HGB 12.2 gm/dL (11.4-16.0); Lymphocytes # (A) 1.2 k/uL (1.0-4.8); Lymphocytes % (A) 17 %; MCH 32.7 pg (25.0-35.0); MCHC 32.2 g/dL (31.0-37.0); MCV 101.8 fL (80.0-100.0); Macrocytosis Slight; Mean Platelet Volume 8.1; Monocytes # (A) 0.2 k/uL (0-1.0); Monocytes % (A) 3 %; Neutrophils # (A) 5.3 k/uL (1.3-7.7); Neutrophils % (A) 76 %; Platelet Count 212 k/uL (150-450); RBC 3.73 m/uL (3.80-5.40); RDW 13.8 % (11.5-15.5); WBC 6.9 k/uL (3.8-10.6)
[2024-09-09 17:44] LABS: Partial Thromboplastin Time 22.3 sec (22.0-30.0); Prothrombin Time 11.4 sec (10.0-12.5)
[2024-09-09 17:45] LABS: ALT 14 U/L (4-34); AST 27 U/L (14-36); African American GFR (CKD) 75 (>60 ml/min/1.73 sqM); Albumin 4.5 g/dL (3.5-5.0); Alkaline Phosphatase 72 U/L (38-126); Anion Gap 11 mmol/L; Blood Urea Nitrogen 26 mg/dL (7-17); Calcium 9.8 mg/dL (8.4-10.2); Carbon Dioxide 29 mmol/L (22-30); Chloride 102 mmol/L (98-107); Glucose 106 mg/dL (74-99); Lipase 45 U/L (23-300); Magnesium 1.9 mg/dL (1.6-2.3); Non-African American GFR(CKD) 65 (>60 ml/min/1.73 sqM); Potassium 3.6 mmol/L (3.5-5.1); Sodium 142 mmol/L (137-145); Total Bilirubin 0.5 mg/dL (0.2-1.3); Total Protein 7.9 g/dL (6.3-8.2)
--- NOTE | 2024-09-09 18:58 | CT ---
EXAMINATION TYPE: CT abdomen pelvis w con DATE OF EXAM: 09/09/2024 6:43 PM COMPARISON: None. CLINICAL INDICATION: Female, 84 years old with history of pain, abdominal pain with bright red stools TECHNIQUE: Axial images were obtained from above the diaphragm to the pubic rami in the axial plane a t 5 mm thick sections. Reconstructed images are reviewed on the computer in the coronal plane. CONTRAST: 70ml mL of Isovue 300. Study performed without Oral Contrast DLP: 458.4 mGycm, Automated exposure control for dose reduction was used. FINDINGS: Limited CT sections are obtained the lung bases. The lung bases are clear. There is a large hiatal hernia. Wall thickening within the hiatal hernia is not excluded. Consider additional workup. CT ABDOMEN: Liver: Normal Spleen: Normal Pancreas: Normal Adrenal glands: The adrenal glands are normal. Gallbladder: Normal Kidneys: No masses are evident. No hydronephrosis is present. No cysts are present. No renal stone s are identified. Aorta: Vascular calcification is within the aorta. Inferior vena cava: Normal. CT PELVIS: Beam hardening artifact from a right hip pin is present. Loops of bowel within the abdomen and pelvis are normal. Large fecal boluses of the rectum. Correlate for fecal impaction. There are loops of bowel which are incompletely distended or lack oral cont rast limiting their evaluation. Appendix: Not identified. No suspicious inflammatory changes identified. Urinary bladder: Normal. Genitourinary structures: There is a low-density area within the left adnexa versus left iliac chain region could be a left adnexal cyst measuring 3.0 cm by 1.5 cm. Consider lymphocele within the differ ential. Uterus or ovaries are not identified. Osseous structures: No suspicious lytic or sclerotic lesions. IMPRESSION: 1. Large fecal bolus of the rectum. Correlate for fecal impaction. 2. Left ovarian cyst versus lymphocele left hemipelvis [facility], , 09/09/2024 6:55 PM
[2024-09-09] MEDS ORDERED: NALOXONE 0.4 MG/ML 1 ML VIAL IV PRN (22:07)
[2024-09-09] MEDS ORDERED: ONDANSETRON 4 MG/2 ML VIAL IVP PRN (22:07)
[2024-09-09] MEDS: SENNOSIDES-DOCUSATE SODIUM 1 EACH TAB PO STA (22:10)
[2024-09-09] MEDS: SODIUM CHLORIDE 0.9% 500 ML 500 ML IV ONE (22:13)
[2024-09-09] MEDS: MORPHINE SULFATE 4 MG/ML SYRINGE IVP STA (22:14)
[2024-09-10] MEDS: NA PHOS,M-B/NA PHOS,DI-BA 133 ML ENEMA RECTAL STA (01:03)
[2024-09-10] MEDS: MORPHINE SULFATE 4 MG/ML SYRINGE IV PRN (05:37)
[2024-09-10 05:43] LABS: ALT 12 U/L (4-34); AST 26 U/L (14-36); African American GFR (CKD) >90 (>60 ml/min/1.73 sqM); Albumin 3.9 g/dL (3.5-5.0); Alkaline Phosphatase 58 U/L (38-126); Anion Gap 9 mmol/L; Blood Urea Nitrogen 19 mg/dL (7-17); Calcium 9.1 mg/dL (8.4-10.2); Carbon Dioxide 27 mmol/L (22-30); Chloride 103 mmol/L (98-107); Glucose 97 mg/dL (74-99); Magnesium 1.8 mg/dL (1.6-2.3); Non-African American GFR(CKD) 79 (>60 ml/min/1.73 sqM); Phosphorus 3.4 mg/dL (2.5-4.5); Potassium 3.5 mmol/L (3.5-5.1); Sodium 139 mmol/L (137-145); Total Bilirubin 0.7 mg/dL (0.2-1.3); Total Protein 7.1 g/dL (6.3-8.2)
[2024-09-10 05:54] LABS: Basophils % (A) 0 %; Eosinophils # (A) 0.1 k/uL (0-0.7); Eosinophils % (A) 1 %; HCT 34.1 % (34.0-46.0); Lymphocytes # (A) 1.4 k/uL (1.0-4.8); Lymphocytes % (A) 22 %; MCH 32.6 pg (25.0-35.0); MCHC 32.4 g/dL (31.0-37.0); MCV 100.8 fL (80.0-100.0); Mean Platelet Volume 7.3; Monocytes # (A) 0.2 k/uL (0-1.0); Monocytes % (A) 4 %; Neutrophils # (A) 4.5 k/uL (1.3-7.7); Neutrophils % (A) 72 %; Platelet Count 197 k/uL (150-450); RBC 3.39 m/uL (3.80-5.40); RDW 13.4 % (11.5-15.5); WBC 6.3 k/uL (3.8-10.6)
[2024-09-10] MEDS: ONDANSETRON 4 MG/2 ML VIAL IVP STA (09:06)
[2024-09-10] MEDS: SENNOSIDES-DOCUSATE SODIUM 1 EACH TAB PO SCH (09:06)
[2024-09-10] MEDS: PANTOPRAZOLE 40 MG/10 ML VIAL IV SCH ×2 (09:07→20:00)
[2024-09-10] MEDS ORDERED: DEXTROSE 50% SYRINGE 50 ML IVP PRN ×2 (09:23)
--- NOTE | 2024-09-10 10:00 | XR ---
EXAMINATION TYPE: XR chest 1V portable DATE OF EXAM: 09/10/2024 9:34 AM COMPARISON: None. CLINICAL INDICATION: Female, 84 years old with history of shortness of breath, TECHNIQUE: XR chest 1V portable view(s) obtained. FINDINGS: The heart size is normal. The pulmonary vasculature is normal. The lungs are clear. Hiatal hernia is present. IMPRESSION: 1. No acute pulmonary process. 2. Hiatal hernia [facility], , 09/10/2024 9:58 AM
[2024-09-10] MEDS: ACETAMINOPHEN TAB 325 MG TAB PO PRN (10:21)
[2024-09-10 12:08] LABS: Glucose,Whole Blood 136 mg/dL (70-110)
--- NOTE | 2024-09-10 12:40 | P.CRDCN ---
History of Present Illness History of present illness: HISTORY OF PRESENT ILLNESS: This is a 84-year-old female with a past medical history significant for hypertension and anxiety. Patient does not follow with a person investigator. We have been asked to see the patient in consultation for elevated troponins. Patient examined at the bedside. Patient presented to the hospital with a chief complaint of constipation. Patient denied having any chest pain or pressure. She denied any shortness of breath. Denied dizziness or lightheadedness. For unknown reason, troponins were drawn by the ER physician which resulted at 0.047. Troponins were repeated this morning by primary medicine resulting at 0.084. Patient denies any known history of CAD. EKG completed revealing sinus mechanism with no signs of acute ischemia. Vital signs are stable. Blood pressure slightly on the higher side with systolics in the [id number]. REVIEW OF SYSTEMS: At the time of my exam: CONSTITUTIONAL: Denies fever or chills. HEENT: Denies blurred vision, vision changes, or eye pain. Denies hemoptysis CARDIOVASCULAR: Denies chest pain. Denies orthopnea. Denies PND. Denies palpitations RESPIRATORY: Denies shortness of breath. GASTROINTESTINAL: Denies abdominal pain. Denies nausea or vomiting. HEMATOLOGIC: Denies bleeding disorders. GENITOURINARY: Denies any blood in urine. SKIN: Denies pruitis. Denies rash. PHYSICAL EXAM: VITAL SIGNS: Reviewed. GENERAL: Well-developed in no acute distress. HEENT: Head is normocephalic. Pupils are equal, round. Sclerae anicteric. Mucous membranes of the mouth are moist. Neck supple. No JVD or thyromegaly LUNGS: Respirations even and unlabored. Lungs essentially clear to auscultation bilaterally. HEART: Regular rate and rhythm. S1 and S2 heard. ABDOMEN: Soft. Nondistended. Nontender. EXTREMITIES: Normal range of motion. No clubbing or cyanosis. Peripheral pulses intact. No lower extremity edema NEUROLOGIC: Awake and alert. Oriented x 3. ASSESSMENT: Constipation Abnormal troponins of unclear clinical significance Hypertension History of anxiety PLAN: Obtain 2D echo to assess cardiac structure and function Check lipid panel and hemoglobin A1c Add aspirin 81 mg daily Add losartan 25 mg daily for optimal blood pressure control Recommend outpatient stress testing Further recommendations pending patient course Nurse practitioner note has been reviewed by physician. Signing provider agrees with the documented findings, assessment, and plan of care documented by HYDRAULIC CONTROLS TECHNICIAN as a scribe. Past Medical History Past Medical History: Coronary Artery Disease (CAD), Diabetes Mellitus, Hyperlipidemia, Hypertension Additional Past Medical History / Comment(s): spinal stenosis History of Any Multi-Drug Resistant Organisms: None Reported Past Surgical History: Back Surgery, Hysterectomy, Orthopedic Surgery Additional Past Surgical History / Comment(s): bilateral knee replacements Past Psychological History: Depression Smoking Status: Never smoker Past Alcohol Use History: None Reported Past Drug Use History: None Reported Medications and Allergies Home Medications Medication Instructions Recorded Confirmed Type ALPRAZolam [Xanax] 0.5 mg PO HS 07/16/18 09/09/24 History oxyCODONE HCL [oxyCODONE HCL (IR)] 10 mg PO TID 07/16/18 09/09/24 History Dapagliflozin Propanediol [Farxiga] 5 mg PO DAILY 09/09/24 09/09/24 History Escitalopram [Lexapro] 5 mg PO HS 09/09/24 09/09/24 History Allergies Allergy/AdvReac Type Severity Reaction Status Date / Time Penicillins Allergy Swelling Verified 09/09/24 19:39 Physical Exam Vitals: Vital Signs Temp Pulse Pulse Resp BP BP BP 09/10/24 07:15 97.5 F L 84 14 156/74 09/10/24 02:47 98.1 F 86 15 154/76 09/09/24 22:58 98.2 F 74 15 178/87 09/09/24 22:05 71 20 148/86 09/09/24 17:24 73 16 155/74 09/09/24 16:52 97.9 F 90 20 167/85 Pulse Ox 09/10/24 07:15 97 09/10/24 02:47 95 09/09/24 22:58 95 09/09/24 22:05 100 09/09/24 17:24 97 09/09/24 16:52 99 Intake and Output 09/09/24 09/10/24 09/10/24 22:59 06:59 14:59 Other: Voiding Method Bedside Commode # Bowel Movements 9 Weight 44.452 kg Results 09/10/24 05:13 09/10/24 05:13 Cardiac Enzymes 09/09/24 09/09/24 09/10/24 Range/Units 17:21 17:21 05:13 AST 27 26 (14-36) U/L Troponin I 0.047 H* (0.000-0.034) ng/mL 09/10/24 Range/Units 09:36 AST (14-36) U/L Troponin I 0.084 H* (0.000-0.034) ng/mL Coagulation 09/09/24 Range/Units 17:21 PT 11.4 (10.0-12.5) sec APTT 22.3 (22.0-30.0) sec CBC 09/09/24 09/10/24 Range/Units 17:21 05:13 WBC 6.9 6.3 (3.8-10.6) k/uL RBC 3.73 L 3.39 L (3.80-5.40) m/uL Hgb 12.2 11.0 L (11.4-16.0) gm/dL Hct 38.0 34.1 (34.0-46.0) % Plt Count 212 197 (150-450) k/uL Comprehensive Metabolic Panel 09/09/24 09/10/24 Range/Units 17:21 05:13 Sodium 142 139 (137-145) mmol/L Potassium 3.6 3.5 (3.5-5.1) mmol/L Chloride 102 103 (98-107) mmol/L Carbon Dioxide 29 27 (22-30) mmol/L BUN 26 H 19 H (7-17) mg/dL Creatinine 0.83 0.70 (0.52-1.04) mg/dL Glucose 106 H 97 (74-99) mg/dL Calcium 9.8 9.1 (8.4-10.2) mg/dL AST 27 26 (14-36) U/L ALT 14 12 (4-34) U/L Alkaline Phosphatase 72 58 (38-126) U/L Total Protein 7.9 7.1 (6.3-8.2) g/dL Albumin 4.5 3.9 (3.5-5.0) g/dL Current Medications Generic Name Dose Route Start Last Admin Trade Name Freq PRN Reason Stop Dose Admin Acetaminophen 650 mg 09/10/24 09:22 09/10/24 10:21 Acetaminophen Tab 325 Mg Tab PO 650 mg Q6HR PRN Administration Mild Pain or Fever > 100.5 Aspirin 81 mg 09/11/24 09:00 Aspirin 81 Mg PO DAILY LENNY Dextrose/Water 25 ml 09/10/24 09:23 Dextrose 50% Syringe 50 Ml IVP PER PROTOCOL PRN Hypoglycemia Protocol Dextrose/Water 50 ml 09/10/24 09:23 Dextrose 50% Syringe 50 Ml IVP PER PROTOCOL PRN Hypoglycemia Protocol Insulin Human Lispro 0 unit 09/10/24 12:30 Insulin Lispro (Humalog) 100 Unit/Ml 10 Ml Vl SQ ACHS [facility] Protocol Losartan Potassium 25 mg 09/10/24 12:30 Losartan 25 Mg Tab PO DAILY LENNY Morphine Sulfate 4 mg 09/09/24 22:07 09/10/24 12:09 Morphine Sulfate 4 Mg/Ml Syringe IV 4 mg Q4HR PRN Administration Severe Pain (Scale 7 to 10) Naloxone HCl 0.2 mg 09/09/24 22:07 Naloxone 0.4 Mg/Ml 1 Ml Vial IV Q2M PRN Opioid Reversal Ondansetron HCl 4 mg 09/09/24 22:07 Ondansetron 4 Mg/2 Ml Vial IVP Q8HR PRN Nausea And Vomiting Pantoprazole Sodium 40 mg 09/10/24 09:00 09/10/24 09:07 Pantoprazole 40 Mg/10 Ml Vial IV 40 mg DAILY LENNY Administration Senna/Docusate Sodium 1 each 09/10/24 09:00 09/10/24 09:06 Sennosides-Docusate Sodium 1 Each Tab PO 1 each BID LENNY Administration Intake and Output 09/09/24 09/10/24 09/10/24 22:59 06:59 14:59 Other: Voiding Method Bedside Commode # Bowel Movements 9 Weight 44.452 kg 09/10/24 05:13 09/10/24 05:13
[2024-09-10] MEDS: INSULIN LISPRO (HumaLOG) 100 UNIT/ML 10 mL VL SQ SCH (14:32)
[2024-09-10] MEDS: HYDROmorphone 0.5 MG/0.5 ML SYRINGE IVP PRN (15:12)
[2024-09-10] MEDS: LOSARTAN 25 MG TAB PO SCH (15:12)
[2024-09-10 15:19] LABS: Chol/HDL Ratio 2.32 Ratio; VLDL Calculation 15.36 mg/dL (5.00-40.00)
[2024-09-10 15:20] LABS: LDL Cholesterol,Calculated 61.9 mg/dL (0.0-131.0)
[2024-09-10 16:46] LABS: Glucose,Whole Blood 94 mg/dL (70-110)
[2024-09-10] MEDS: NA PHOS,M-B/NA PHOS,DI-BA 133 ML ENEMA RECTAL ONE (18:20)
[2024-09-10] MEDS: ALPRAZolam 0.5 MG TAB PO SCH (20:00)
[2024-09-10] MEDS: ESCITALOPRAM 5 MG TAB PO SCH (20:00)
[2024-09-10 20:53] LABS: Glucose,Whole Blood 121 mg/dL (70-110)
--- NOTE | 2024-09-10 22:30 | HP ---
HISTORY AND PHYSICAL CHIEF COMPLAINT: GI bleed. HISTORY OF PRESENT ILLNESS: This is an 84-year-old woman with a past medical history of multiple medical issues including CAD, diabetes mellitus type 2, who is constipated according to the family. The patient was taken to [facility] with complaints of blood in the stools and the troponins are also found to be indeterminate. Cardiology is also consulted. A CAT scan of the abdomen and pelvis just done which I reviewed personally showed large fecal bolus of the rectum with possible fecal impaction, left ovarian cyst also noted. There is no history of any fever, rigors, or chills at this time. PAST MEDICAL HISTORY: Reviewed and includes CAD, diabetes mellitus, hypertension, and hyperlipidemia. Rest of history and rest of the chart is also reviewed. HOME MEDICATIONS: Reviewed and includes oxycodone. Dose and rest of medication is also reviewed. ALLERGIES: Penicillin. FAMILY HISTORY: No history of heart disease or strokes in the family. SOCIAL HISTORY: No history of smoking or alcohol. REVIEW OF SYSTEMS: Fourteen-point review of systems is negative except as mentioned earlier. PHYSICAL EXAMINATION: VITAL SIGNS: Pulse 84, blood pressure n respirations 14. CHEST: Clear to auscultation. CARDIOVASCULAR: S1 and S2. ABDOMEN: Soft, nontender. No masses palpable. LEGS: No edema. NERVOUS SYSTEM: Diffusely weak. SKIN: No ulcer, rash, bleeding. JOINTS: No active deforming arthropathy. LABORATORY DATA: Reviewed. ASSESSMENT: 1. Constipation and lower gastrointestinal bleeding, for evaluation. 2. Hypertension. 3. Troponin indeterminate around up to 0.084 of undetermined clinical significance. 4. Left ovarian cyst versus lymphocele of the left hemipelvis. 5. History of coronary artery disease. 6. Diabetes mellitus type 2. 7. Hypertension. 8. Hyperlipidemia. 9. History of spinal stenosis. RECOMMENDATIONS AND DISCUSSION: This is an 84-year-old woman, who presented with multiple complex medical issues. We will monitor the patient closely. Continue with the current medical management, continue with symptomatic treatment, continue with the pain management, and I would also recommend closely follow up with Gastroenterology for possible endoscopes. Otherwise, Cardiology input appreciated. The patient is full code. Discussion was held with the daughter at the bedside. Guarded prognosis. Further recommendations to follow. MMODL / IJN: [id number] / [facility]
[2024-09-11 06:31] LABS: Glucose,Whole Blood 97 mg/dL (70-110)
--- NOTE | 2024-09-11 07:35 | CA ---
Transthoracic Echo Report Name: Maite Walker Age: 84 Gender: F : 1940 Exam Date: 09/10/2024 13:52 Exam Location: [facility] Ht (in): 60 Wt (lb): 98 Ordering Physician: Claritza Saenz Attending/Referring Phys: [id number], Letty Networking Administrator Kendrick Song, RDTANESHA Procedure CPT: Indications: LV function, abnormal troponins Cardiac Hx: CAD, Diabetes Technical Quality: Good Contrast 1: Total Dose (mL): Contrast 2: Total Dose (mL): MEASUREMENTS (Male / Female) Normal Values 2D ECHO LV Diastolic Diameter PLAX 4.1 cm 4.2 - 5.9 / 3.9 - 5.3 cm LV Systolic Diameter PLAX 3.1 cm IVS Diastolic Thickness 0.9 cm 0.6 - 1.0 / 0.6 - 0.9 cm LVPW Diastolic Thickness 1.0 cm 0.6 - 1.0 / 0.6 - 0.9 cm LV Relative Wall Thickness 0.5 LVOT Diameter 1.9 cm LA Systolic Diameter LX 3.4 cm 3.0 - 4.0 / 2.7 - 3.8 cm LV Diastolic Volume MOD BP 59.8 cm??? 67 - 155 / 56 - 104 cm??? LV Systolic Volume MOD BP 30.4 cm??? 22 - 58 / 19 - 49 cm??? LV Ejection Fraction MOD BP 49.2 % >= 55 % LV Diastolic Volume MOD 4C 68.9 cm??? LV Systolic Volume MOD 4C 32.3 cm??? LV Ejection Fraction MOD 4C 53.1 % LV Diastolic Length 4C 6.9 cm LV Systolic Length 4C 6.0 cm LV Diastolic Volume MOD 2C 51.8 cm??? LV Systolic Volume MOD 2C 27.6 cm??? LV Ejection Fraction MOD 2C 46.7 % LV Diastolic Length 2C 7.0 cm LV Systolic Length 2C 5.8 cm LA Volume 56.0 cm??? 18 - 58 / 22 - 52 cm??? LA Volume Index 40.9 cm???/m??? 16 - 28 cm???/m??? DOPPLER Right Atrial Pressure 5.0 mmHg FINDINGS Left Ventricle Hyperdynamic LV with EF between 65 to 70%. Moderate concentric left ventricular hypertrophy. Mildly decreased left ventricular ejection fraction. Right Ventricle Normal right ventricular size and function. Unable to estimate the right ventricular systolic pressure. Right Atrium Normal right atrial size. Left Atrium Mildly increased left atrial volume. Mitral Valve Mitral valve thickened. No mitral stenosis. No mitral regurgitation. Aortic Valve Trileaflet aortic valve. Thickened aortic valve without stenosis. Trace aortic regurgitation. Tricuspid Valve Structurally normal tricuspid valve. No tricuspid stenosis. No tricuspid regurgitation. Pulmonic Valve Structurally normal pulmonic valve. No pulmonic stenosis. No pulmonic regurgitation. Pericardium No pericardial effusion. Aorta Aortic root and proximal ascending aorta not well visualized. CONCLUSIONS Hyperdynamic LV with EF between 65 to 70% Moderate concentric left ventricular hypertrophy No significant valvular abnormalities noted No pericardial effusion Previewed by: Dr. Chris Ortiz MD (Electronically Signed) Final Date: 11 September 2024 07:33
[2024-09-11 08:41] LABS: ALT 11 U/L (8-44); AST 24 U/L (13-35); Albumin/Globulin Ratio 1.29 Ratio (1.60-3.17); Alkaline Phosphatase 54 U/L (41-126); Blood Urea Nitrogen 15.6 mg/dL (9.0-27.0); Calcium 9.4 mg/dL (8.7-10.3); Chloride 100 mmol/L (96-109); Globulin 3.1 g/dL (1.6-3.3); Glucose 86 mg/dL (70-110); Potassium 3.4 mmol/L (3.5-5.5); Sodium 139 mmol/L (135-145); Total Bilirubin 0.5 mg/dL (0.3-1.2); Total Protein 7.1 g/dL (6.2-8.2)
[2024-09-11] MEDS: DAPAGLIFLOZIN PROPANEDIOL 5 MG TABLET PO SCH (09:08)
[2024-09-11] MEDS: ASPIRIN 81 MG PO SCH (09:08)
[2024-09-11] MEDS: LOSARTAN 50 MG TAB PO SCH (09:09)
[2024-09-11 09:11] LABS: Basophils # (A) 0.04 X 10*3/uL (0.00-0.10); Basophils % (A) 0.6 %; Eosinophils # (A) 0.03 X 10*3/uL (0.04-0.35); Eosinophils % (A) 0.4 %; HCT 37.3 % (37.2-46.3); HGB 12.5 g/dL (12.0-15.0); Lymphocytes # (A) 1.74 X 10*3/uL (0.90-5.00); Lymphocytes % (A) 24.5 %; MCH 33.4 pg (27.0-32.0); MCHC 33.5 g/dL (32.0-37.0); MCV 99.7 FL (80.0-97.0); Mean Platelet Volume 10.5 FL (9.5-12.2); Monocytes # (A) 0.46 X 10*3/uL (0.20-1.00); Monocytes % (A) 6.5 %; NRBC Per 100 WBC 0 X 10*3/uL (0.00-0.01); Neutrophils # (A) 4.82 X 10*3/uL (1.80-7.70); Neutrophils % (A) 67.9 %; Platelet Count 235 X 10*3/uL (140-440); RBC 3.74 X 10*6/uL (4.10-5.20); RDW 13.6 % (11.5-14.5)
--- NOTE | 2024-09-11 11:02 | P.PN ---
Subjective HISTORY OF PRESENT ILLNESS: This is a 84-year-old female with a past medical history significant for hypertension and anxiety. Patient does not follow with a in store representative. We have been asked to see the patient in consultation for elevated troponins. Patient examined at the bedside. Patient presented to the hospital with a chief complaint of constipation. Patient denied having any chest pain or pressure. She denied any shortness of breath. Denied dizziness or lightheadedness. For unknown reason, troponins were drawn by the ER physician which resulted at 0.047. Troponins were repeated this morning by primary medicine resulting at 0.084. Patient denies any known history of CAD. EKG completed revealing sinus mechanism with no signs of acute ischemia. Vital signs are stable. Blood pressure slightly on the higher side with systolics in the [id number]. 09/11/2024 Patient examined this morning at the bedside. Patient without complaints of chest pain or pressure. Denies SOB. Echo revealed EF 65-70% with moderate concentric LVH. Blood pressure improved today with a reading of 142/69. PHYSICAL EXAM: VITAL SIGNS: Reviewed. GENERAL: Well-developed in no acute distress. HEENT: Head is normocephalic. Pupils are equal, round. Sclerae anicteric. Mucous membranes of the mouth are moist. Neck supple. No JVD or thyromegaly LUNGS: Respirations even and unlabored. Lungs essentially clear to auscultation bilaterally. HEART: Regular rate and rhythm. S1 and S2 heard. ABDOMEN: Soft. Nondistended. Nontender. EXTREMITIES: Normal range of motion. No clubbing or cyanosis. Peripheral pulses intact. No lower extremity edema NEUROLOGIC: Awake and alert. Oriented x 3. ASSESSMENT: Constipation Abnormal troponins of unclear clinical significance Hypertension Moderate concentric LVH History of anxiety PLAN: Increase Losation to 50 mg daily for optimal blood pressure control Recommend outpatient stress testing Stable from a cardiac standpoint for discharge We will sign off. Please reconsult if needed. Nurse practitioner note has been reviewed by physician. Signing provider agrees with the documented findings, assessment, and plan of care documented by NURSE PRACTITIONER MANAGER as a scribe. Objective - Vital Signs Vital signs: Vital Signs Temp 97.3 F L 09/11/24 07:11 Pulse 79 09/11/24 07:11 Resp 18 09/11/24 07:11 BP 142/69 09/11/24 07:11 Pulse Ox 98 09/11/24 07:11 FiO2 Intake & Output 09/10/24 09/11/24 09/11/24 18:59 06:59 18:59 Other: Voiding Method Bedside Commode Diaper # Voids 2 2 # Bowel Movements 2 - Labs CBC & Chem 7: 09/11/24 05:00 09/11/24 05:00 Labs: Abnormal Lab Results - Last 24 Hours (Table) 09/10/24 09/10/24 09/10/24 Range/Units 09:36 12:07 20:51 POC Glucose (mg/dL) 136 H 121 H (70-110) mg/dL Troponin I 0.084 H* (0.000-0.034) ng/mL
[2024-09-11 11:56] LABS: Glucose,Whole Blood 85 mg/dL (70-110)
[2024-09-11] MEDS: LACTULOSE 20 GM/30 ML CUP PO PRN (13:54)
--- NOTE | 2024-09-11 16:48 | PN ---
PROGRESS NOTE DATE OF SERVICE: 09/11/2024 SUBJECTIVE: This is an 84-year-old woman, who was admitted with constipation, lower GI bleeding, also has indeterminate troponin. No chest pain. No palpitations. No fever. OBJECTIVE: VITAL SIGNS: Pulse 86, blood pressure 130/76, respirations 17. CHEST: Clear to auscultation. CARDIOVASCULAR: S1, S2 muffled. ABDOMEN: Soft, nontender. LABORATORY DATA: Noted. 2D echo noted. ASSESSMENT: 1. Constipation and lower gastrointestinal bleeding, for evaluation. 2. Hypertension. 3. Indeterminate troponin around 0.084. 4. Left ovarian cyst versus lymphocele of the left hemipelvis. 5. Coronary artery disease. 6. Diabetes mellitus type 2. 7. Multiple complex medical issues. RECOMMENDATIONS: Recommend to continue current management and continue symptomatic treatment. Repeat labs. Otherwise, closely follow with multiple consultants. PT, OT evaluation. Possible ECF rehab. Guarded prognosis. Further recommendations to follow. MMODL / IJN: [id number] /
[2024-09-11 17:35] LABS: Glucose,Whole Blood 107 mg/dL (70-110)
[2024-09-11 20:08] LABS: Glucose,Whole Blood 213 mg/dL (70-110)
[2024-09-12 05:36] LABS: Glucose,Whole Blood 102 mg/dL (70-110)
[2024-09-12 08:24] LABS: ALT 12 U/L (8-44); AST 28 U/L (13-35); Albumin 3.8 g/dL (3.8-4.9); Albumin/Globulin Ratio 1.27 Ratio (1.60-3.17); Alkaline Phosphatase 52 U/L (41-126); BUN/Creat Ratio 20.25 Ratio (12.00-20.00); Basophils # (A) 0.03 X 10*3/uL (0.00-0.10); Basophils % (A) 0.5 %; Blood Urea Nitrogen 16.2 mg/dL (9.0-27.0); Calcium 9.3 mg/dL (8.7-10.3); Carbon Dioxide 26.9 mmol/L (21.6-31.8); Chloride 101 mmol/L (96-109); Eosinophils # (A) 0.08 X 10*3/uL (0.04-0.35); Eosinophils % (A) 1.2 %; Glucose 100 mg/dL (70-110); HCT 37.5 % (37.2-46.3); HGB 12.4 g/dL (12.0-15.0); Lymphocytes # (A) 1.71 X 10*3/uL (0.90-5.00); Lymphocytes % (A) 26.4 %; MCH 32.8 pg (27.0-32.0); MCHC 33.1 g/dL (32.0-37.0); MCV 99.2 FL (80.0-97.0); Mean Platelet Volume 10.4 FL (9.5-12.2); Monocytes % (A) 7.7 %; NRBC Per 100 WBC 0 X 10*3/uL (0.00-0.01); Neutrophils # (A) 4.14 X 10*3/uL (1.80-7.70); Platelet Count 236 X 10*3/uL (140-440); Potassium 3.2 mmol/L (3.5-5.5); RBC 3.78 X 10*6/uL (4.10-5.20); RDW 13.4 % (11.5-14.5); Sodium 140 mmol/L (135-145); Total Bilirubin 0.5 mg/dL (0.3-1.2); Total Protein 6.8 g/dL (6.2-8.2); WBC 6.47 X 10*3/uL (4.50-10.00)
[2024-09-12] MEDS: polyethylene glycoL 3350 17 GM POWD.PACK PO SCH (08:35)
[2024-09-12 12:06] LABS: Glucose,Whole Blood 189 mg/dL (70-110)
--- NOTE | 2024-09-12 12:13 | P.CONS ---
History of Present Illness - Reason for Consult Consult date: 09/12/24 Constipation, GI bleed Requesting physician: uJdy Garcia - Chief Complaint Constipation - History of Present Illness This a pleasant 84-year-old female who was brought into the emergency department 3 days ago by her daughter with concerns of constipation and some blood in the stool and toilet. Apparently patient was having decreased number of bowel movements and then had been straining and had complained of some rectal pain prior to her daughter bringing her in. there was some reported blood streaks in the stool and some in the toilet. Gastroenterology was consulted for constipation and GI bleed. Patient reports last colonoscopy about 8 years ago. No available report at this time. Patient denies any abdominal pain, nausea or vomiting. Nursing has reported patient has had multiple bowel movements in the emergency department after enemas, and yesterday had a loose bowel movement. No blood noted. Again patient currently had a small bowel movement that is light brown. Patient is not on any anticoagulation. Does not appear that she takes any laxatives at home. Cardiology was also consulted for elevated troponins unclear etiology however acute coronary event was ruled out. Patient has been on a clear liquid diet and tolerating well. Nursing reports somewhat of a poor appetite. Review of Systems REVIEW OF SYSTEMS: CARDIOPULMONARY: No chest pain or shortness of breath. Gastrointestinal: No abdominal pain. No nausea or vomiting. No hematemesis, coffee-ground emesis. No rectal bleeding, or melena. GENITOURINARY: No dysuria or hematuria. MUSCULOSKELETAL: Reports normal range of motion., Joint pain. SKIN: No rashes. No jaundice. ENDOCRINE: No chills, fevers. No excessive weight gain or loss. No polydipsia or polyuria. PSYCHIATRIC: Unremarkable. NEUROLOGY: No change in mental status. Denies dizziness, headache. ENT: Vision unremarkable. CONSTITUTIONAL: No recent weight loss. No fever, chills, night sweats. Past Medical History Past Medical History: Coronary Artery Disease (CAD), Diabetes Mellitus, Hyperlipidemia, Hypertension Additional Past Medical History / Comment(s): spinal stenosis History of Any Multi-Drug Resistant Organisms: None Reported Past Surgical History: Back Surgery, Hysterectomy, Orthopedic Surgery Additional Past Surgical History / Comment(s): bilateral knee replacements Past Psychological History: Depression Smoking Status: Never smoker Past Alcohol Use History: None Reported Past Drug Use History: None Reported Medications and Allergies Home Medications Medication Instructions Recorded Confirmed Type ALPRAZolam [Xanax] 0.5 mg PO HS 07/16/18 09/09/24 History oxyCODONE HCL [oxyCODONE HCL (IR)] 10 mg PO TID 07/16/18 09/09/24 History Dapagliflozin Propanediol [Farxiga] 5 mg PO DAILY 09/09/24 09/09/24 History Escitalopram [Lexapro] 5 mg PO HS 09/09/24 09/09/24 History Allergies Allergy/AdvReac Type Severity Reaction Status Date / Time Penicillins Allergy Swelling Verified 09/09/24 19:39 Physical Exam Vitals: Vital Signs Temp Pulse Resp BP Pulse Ox 09/12/24 07:20 96.9 F L 79 16 137/61 98 09/12/24 01:41 97.9 F 80 17 137/75 98 09/12/24 01:34 97.9 F 76 18 144/65 98 09/11/24 19:40 98.0 F 88 17 160/82 97 09/11/24 15:31 98.0 F 86 17 136/76 97 Intake and Output 09/11/24 09/12/24 09/12/24 22:59 06:59 14:59 Other: Voiding Method Bedside Commode Bedside Commode Bedpan Bedpan Diaper Diaper # Voids 2 General appearance: The patient is alert, oriented, appears in no acute distress. HET: Head is normocephalic and atraumatic. Conjunctiva pink. Sclera anicteric. Neck: Supple without lymphadenopathy. Trachea midline. Heart: Regular. Lungs: Equal expansion, normal respiratory effort. Abdomen: Soft, thin, nontender, nondistended. Skin: No rashes. No jaundice. Extremities: Normal skin color and turgor. No pedal edema. Neurological: No focal deficits. Alert and oriented x3. Results CBC & Chem 7: 09/12/24 04:16 09/12/24 04:16 Labs: Abnormal Lab Results - Last 24 Hours (Table) 09/11/24 09/11/24 09/12/24 Range/Units 05:00 20:07 04:16 RBC 3.74 L 3.78 L (4.10-5.20) X 10*6/uL MCV 99.7 H 99.2 H (80.0-97.0) FL MCH 33.4 H 32.8 H (27.0-32.0) pg Eosinophils # 0.03 L (0.04-0.35) X 10*3/uL Potassium (3.5-5.5) mmol/L Anion Gap (4.00-12.00) mmol/L BUN/Creatinine Ratio (12.00-20.00) Ratio POC Glucose (mg/dL) 213 H (70-110) mg/dL Albumin/Globulin Ratio (1.60-3.17) Ratio // Range/Units 04:16 RBC (4.10-5.20) X 10*6/uL MCV (80.0-97.0) FL MCH (27.0-32.0) pg Eosinophils # (0.04-0.35) X 10*3/uL Potassium 3.2 L (3.5-5.5) mmol/L Anion Gap 12.10 H (4.00-12.00) mmol/L BUN/Creatinine Ratio 20.25 H (12.00-20.00) Ratio POC Glucose (mg/dL) (70-110) mg/dL Albumin/Globulin Ratio 1.27 L (1.60-3.17) Ratio Comments: CT abdomen and pelvis with contrast reports large fecal bolus of the rectum. Correlate for fecal impaction. Left ovarian cyst versus lymphocele left hemipelvis Assessment and Plan (1) Constipation Narrative/Plan: 84-year-old female presenting with constipation some rectal discomfort and r eported blood streaks in stool. CT abdomen pelvis with evidence of large fecal bolus in the rectum status post admission with multiple enemas and laxatives. Constipation resolved. Patient had large loose stool yesterday no blood noted. Small bowel movement today with no blood noted. No abdominal pain nausea or vomiting. No indication for any endoscopic evaluation. Patient is cleared for discharge. Recommend regular bowel regimen with MiraLAX daily to twice a day. Current Visit: Yes Status: Acute Code(s): K59.00 - CONSTIPATION, UNSPECIFIED SNOMED Code(s): 82965946 Plan: 1. Continue symptomatic and supportive care 2. Will advance to ground diet secondary to poor dentition 3. Discontinue Dulcolax per request of patient. Will add MiraLAX daily, may titrate to take 1-2 times daily for regular bowel regimen 4. No plans on endoscopic evaluation and no further workup from gastroenterology Thank you for this consultation, patient is cleared from gastroenterology for discharge. Follow-up as needed Dr. Matias Palm I agree with the dictator's note, documented as a scribe by Felisha Bergeron.
[2024-09-12 17:42] LABS: Glucose,Whole Blood 118 mg/dL (70-110)
[2024-09-12 20:23] LABS: Glucose,Whole Blood 144 mg/dL (70-110)
[2024-09-12] MEDS ORDERED: Potassium Replacement Protocol 1 EACH MISC MISCELLANE PRN (20:23)
[2024-09-12] MEDS: POTASSIUM CHLORIDE ER 20 MEQ TAB.ER PO SCH (21:51)
[2024-09-13 06:15] LABS: Glucose,Whole Blood 123 mg/dL (70-110)
[2024-09-13] MEDS: DOCUSATE 100 MG CAP PO SCH (08:56)
--- NOTE | 2024-09-13 09:07 | P.PN ---
Subjective Progress Note Date: 09/12/24 This is a pleasant 84-year-old female who was recently admitted with constipation and back pain Of which she has chronic back pain and takes multiple medications for and has chronic constipation issues. There was some blood noted in the stool likely hemorrhoids or due to the chronic constipation. GI ev aluated the patient recommending bowel regiment with no plans of immediate endoscopic intervention at this time recommending outpatient follow-up. Patient also with significant weakness lives alone and family is concerned she will fall if going home alone. Patient evaluated by physical therapy recommending rehab for continued strength and mobility as patient is baseline independent. Social work following working on possible ECF and will require insurance authorization. Review of systems: Constitutional: No reports of fatigue, fever, or chills Cardiovascular: No reports of chest pain or palpitations Respiratory: No reports of shortness of breath or cough GI: reports of occasional nausea, no reports of vomiting, having bowel movements : No reports of dysuria or retention Neurovascular: reports of generalized weakness, All medications have been reviewed PHYSICAL EXAMINATION: GENERAL: The patient is alert and oriented x 2-3 baseline, Well developed, thin built, elderly appearing. HEENT: Pupils are round and equally reacting to light. EOMI. no scleral icterus. No conjunctival pallor. Normocephalic, atraumatic. No pharyngeal erythema. No thyromegaly. CARDIOVASCULAR: S1 and S2 muffled PULMONARY: diminished breath sounds bilaterally with no wheezing or rhonchi noted. ABDOMEN: soft. Nontender on exam. Thin. non-distended, normoactive bowel sounds. No palpable organomegaly. MUSCULOSKELETAL: No joint swelling or deformity. EXTREMITIES: No cyanosis, clubbing, or pedal edema. NEUROLOGICAL: Gross neurological examination did not reveal any focal deficits. Diffuse weakness SKIN: No rashes. Assessment: Constipation and lower GI bleeding, chronic constipation and bleeding likely due to hemorrhoids, no active bleeding noted Hypertension Indeterminant troponin around 0.084, ACS ruled out per cardiology Left ovarian cyst versus lymphocele of the left hemipelvis Coronary artery disease history Diabetes mellitus, type II Hyperlipidemia Chronic back pain History of depression GI prophylaxis DVT prophylaxis Full code Plan: Recommend to continue with current medications and management with GI following. No plans of endoscopic intervention and no further bleeding noted likely secondary to hemorrhoids and recommends bowel regimen as patient chronically takes pain medications causing chronic constipation Encouraged increase activity as tolerated Patient evaluated by physical therapy recommending rehab for strength and mobility as patient was independent prior to this most recently and lives alone. Family is concerned she will go home and fall Social work following working on ECF and has been accepted pending insurance authorization. Awaiting updated PT/OT therapy notes Possible discharge planning in the next 24 to 48 hours if patient receives insurance authorization The impression and plan of care has been dictated by Margareth Corrales, nurse practitioner as directed. Dr. Jose MD I have performed a history and examination and MDM of this patient, discussed the same with the dictator, and agree with the dictator's assessment and plan as written ,documented as a scribe. Based on total visit time, I have performed more than 50% of the visit. Any additional findings or plans will be noted. Objective - Vital Signs Vital signs: Vital Signs Temp 98.3 F 09/12/24 13:45 Pulse 98 09/12/24 13:45 Resp 14 09/12/24 13:45 BP 134/84 09/12/24 13:45 Pulse Ox 97 09/12/24 13:45 FiO2 Intake & Output 09/11/24 09/12/24 09/12/24 18:59 06:59 18:59 Intake Total 180 Balance 180 Intake: Oral 180 Other: Voiding Method Bedpan Bedside Commode Bedside Commode Diaper Bedpan Bedpan Diaper Diaper # Voids 2 3 # Bowel Movements 0 - Labs CBC & Chem 7: 09/12/24 04:16 09/12/24 04:16 Labs: Abnormal Lab Results - Last 24 Hours (Table) 09/11/24 09/12/24 09/12/24 Range/Units 20:07 04:16 04:16 RBC 3.78 L (4.10-5.20) X 10*6/uL MCV 99.2 H (80.0-97.0) FL MCH 32.8 H (27.0-32.0) pg Potassium 3.2 L (3.5-5.5) mmol/L Anion Gap 12.10 H (4.00-12.00) mmol/L BUN/Creatinine Ratio 20.25 H (12.00-20.00) Ratio POC Glucose (mg/dL) 213 H (70-110) mg/dL Albumin/Globulin Ratio 1.27 L (1.60-3.17) Ratio 09/12/24 Range/Units 12:04 RBC (4.10-5.20) X 10*6/uL MCV (80.0-97.0) FL MCH (27.0-32.0) pg Potassium (3.5-5.5) mmol/L Anion Gap (4.00-12.00) mmol/L BUN/Creatinine Ratio (12.00-20.00) Ratio POC Glucose (mg/dL) 189 H (70-110) mg/dL Albumin/Globulin Ratio (1.60-3.17) Ratio
[2024-09-13 11:26] LABS: Glucose,Whole Blood 131 mg/dL (70-110)
--- NOTE | 2024-09-13 13:56 | P.DS ---
Providers Date of admission: 09/09/24 22:07 Expected date of discharge: 09/13/24 Attending physician: Judy Garcia Primary care physician: Julia Mena Hospital Course: Final diagnosis Constipation and lower GI bleeding, chronic constipation and bleeding likely due to hemorrhoids, no active bleeding noted Hypertension Indeterminant troponin around 0.084, ACS ruled out per cardiology Left ovarian cyst versus lymphocele of the left hemipelvis, may follow-up outpatient with gynecology Coronary artery disease history Diabetes mellitus, type II Hyperlipidemia Chronic back pain History of depression GI prophylaxis DVT prophylaxis Full code Discharge disposition Patient is being discharged in a stable condition with guarded prognosis to [facility]. Patient will follow-up with Dr. Mena in the outpatient setting upon discharge. Patient is to continue with bowel regimen and outpatient follow-up with GI as scheduled. Total time taken is greater than 35 minutes. Hospital course This is a 84-year-old female who was recently admitted with abdominal pain with constipation with some blood in the stool being closely monitored. Patient with chronic constipation frequently becomes constipated and takes pain medications chronically for chronic back pain follows with pain management outpatient. Patient was seen and evaluated by GI received bowel regimen and is having bowel movements recommend to continue with scheduled bowel regimen as well as as needed. Patient with no plans of immediate endoscopic intervention at this time may follow-up with GI in the outpatient setting. Patient also with some mild retention although is voiding will add Flomax and monitor for any further retention likely secondary to constipation and sedentary life as patient does not get up and walk much. Patient was independent prior to and evaluated by physical therapy recommending rehab for continued strength mobility and has been accepted at [facility] and received insurance authorization. Patient to follow-up with cardiology outpatient as well. Patient is tolerating diet with not much of an appetite but is tolerating and would recommend boost supplements 3 times daily between meals. Currently no reports of chest pain, shortness of breath, or palpitations. Patient is afebrile. No reports of nausea or vomiting and patient is tolerating diet. Patient will be going to [facility] today. Physical exam: Gen: This is a 84-year-old female who is awake, alert and oriented x 2, baseline, thin built, elderly appearing, cachectic with significant muscle wasting noted HEENT: Head is atraumatic, normocephalic. Pupils equal, round. Sclerae is anicteric. NECK: Supple. No JVD. No lymphadenopathy. No thyromegaly. LUNGS: Diminished breath sounds bilaterally otherwise clear to auscultation. No wheezes or rhonchi. No intercostal retractions. HEART: S1, S2 are muffled ABDOMEN: Soft. Thin bowel sounds are present. No masses. No tenderness. EXTREMITIES: No pedal edema. No calf tenderness. NEUROLOGICAL: Patient is awake, alert and oriented x2. Cranial nerves 2 through 12 are grossly intact. Diffusely weak Please refer to medication reconciliation sheet for a list of medications. The impression and plan of care has been dictated by Margareth Corrales, Nurse Practitioner as directed. Dr. Libby MD I have performed a history and examination and MDM of this patient, discussed the same with the dictator, and agree with the dictator's assessment and plan as written ,documented as a scribe. Based on total visit time, I have performed more than 50% of the visit. Patient Condition at Discharge: Fair Plan - Discharge Summary New Discharge Prescriptions: New Docusate [Colace] 100 mg PO BID cap Tamsulosin [Flomax] 0.4 mg PO PC-BRKFST cap INSULIN LISPRO (HumaLOG) [HumaLOG] 0 unit SQ ACHS each Pantoprazole Sodium [Protonix] 40 mg PO DAILY #30 tab Acetaminophen Tab [Tylenol] 650 mg PO Q6HR PRN tab PRN Reason: Mild Pain Or Fever > 100.5 Aspirin 81 mg PO DAILY tab Lactulose [Cephulac] 20 gm PO BID PRN ml PRN Reason: Constipation Losartan [Cozaar] 50 mg PO DAILY tab polyethylene glycoL 3350 [Miralax] 17 gm PO DAILY packet oxyCODONE HCL [OxyIR] 10 mg PO Q8H PRN #4 tab PRN Reason: Pain Continue ALPRAZolam [Xanax] 0.5 mg PO HS #4 tab Dapagliflozin Propanediol [Farxiga] 5 mg PO DAILY Escitalopram [Lexapro] 5 mg PO HS Discontinued oxyCODONE HCL [oxyCODONE HCL (IR)] 10 mg PO TID Discharge Medication List Dapagliflozin Propanediol [Farxiga] 5 mg PO DAILY 09/09/24 [History] Escitalopram [Lexapro] 5 mg PO HS 09/09/24 [History] ALPRAZolam [Xanax] 0.5 mg PO HS #4 tab 09/13/24 [Rx] Acetaminophen Tab [Tylenol] 650 mg PO Q6HR PRN tab 09/13/24 [Rx] Aspirin 81 mg PO DAILY tab 09/13/24 [Rx] Docusate [Colace] 100 mg PO BID cap 09/13/24 [Rx] INSULIN LISPRO (HumaLOG) [HumaLOG] 0 unit SQ ACHS each 09/13/24 [Rx] Lactulose [Cephulac] 20 gm PO BID PRN ml 09/13/24 [Rx] Losartan [Cozaar] 50 mg PO DAILY tab 09/13/24 [Rx] Pantoprazole Sodium [Protonix] 40 mg PO DAILY #30 tab 09/13/24 [Rx] Tamsulosin [Flomax] 0.4 mg PO PC-BRKFST cap 09/13/24 [Rx] oxyCODONE HCL [OxyIR] 10 mg PO Q8H PRN #4 tab 09/13/24 [Rx] polyethylene glycoL 3350 [Miralax] 17 gm PO DAILY packet 09/13/24 [Rx] Follow up Appointment(s)/Referral(s): Chris Ortiz MD [STAFF PHYSICIAN] - 1 Week Alessandra [facility] [REFERRING] - As Needed (Follow-up as needed for constipation with gastroenterology) Julia Mena MD [Primary Care Provider] - 1-2 days Activity/Diet/Wound Care/Special Instructions: Activity as tolerated patient is going to [facility] Follow-up with pain management outpatient Continue taking medications as prescribed Continue bowel regimen scheduled as well as as needed Encouraged oral intake and recommend boost between meals 3 times daily Monitor for urinary retention as patient has chronic constipation and has occasional retention, continue Flomax for now Follow-up with primary care provider on discharge Follow-up cardiology outpatient Follow-up GI outpatient Discharge Disposition: TRANSFER TO SNF/ECF
[2024-09-13] MEDS: HYDROcodone/APAP 5-325MG 1 EACH TAB PO PRN (14:02)
[2024-09-13 15:08] VITALS: BP 137/61; PULSE 67; RESP 20; TEMP 97
[2024-09-13] MEDS: TAMSULOSIN 0.4 MG CAP.ER.24H PO STA (15:22)
[2024-09-14] MEDS ORDERED: TAMSULOSIN 0.4 MG CAP.ER.24H PO SCH (08:30)
== END 2024-09-13 16:22 ==
LOC: EC 16:50 → 6NMEDSUR 22:07
PROVIDERS: ADMIT Hospitalist; ATTEND Hospitalist
DX: K59.09 Other constipation (principal); K92.2 Gastrointestinal hemorrhage, unspecified; K60.2 Anal fissure, unspecified; R79.89 Other specified abnormal findings of blood chemistry; I11.9 Hypertensive heart disease without heart failure; E11.9 Type 2 diabetes mellitus without complications; I25.10 Atherosclerotic heart disease of native coronary artery without angina pectoris; E78.5 Hyperlipidemia, unspecified; F32.A Depression, unspecified; F41.9 Anxiety disorder, unspecified; G89.29 Other chronic pain; M54.9 Dorsalgia, unspecified; Z79.84 Long term (current) use of oral hypoglycemic drugs; Z79.899 Other long term (current) drug therapy; Z88.0 Allergy status to penicillin
CPT/HCPCS: 96376 ×4; 96374 ×2; 96375 ×2; 99285; 36415; 93306; 97110; 97530 ×2; 97161; 97166; 86900; 86901; 80061; 80053 ×4; 83605; 83690; 83735 ×2; 84100; 84484 ×2; 85025 ×4; 85610; 85730; 86850; 83036; 71045; 74177; G0378 ×5; J2270 ×2; J1171 ×2; Q9967; J2470 ×5